=== PATIENT | female | born 1975 | race Caucasian/White ===

== ENCOUNTER → 2019-01-13 15:03 | Outpatient (CLI) | payer OTHER, SELFPAY ==
[2019-01-13 15:38] LABS: Add Manual Diff / Slide Review NO; Basophils Absolute Auto 100 /uL (0-100); Eosinophils Absolute Auto 100 /uL (0-450); Eosinophils Percent Auto 1.8 % (2-4); Hematocrit 41.8 % (36-46); Hemoglobin 14.2 g/dL (12.0-16.0); Lymphocytes Absolute Auto 2200 /uL (1100-4500); Lymphocytes Percent Auto 35.5 % (25-40); Mean Corpuscular HGB Conc 33.9 % (30-36); Mean Corpuscular Volume 91.2 fL (80-100); Monocytes Absolute Auto 500 /uL (0-900); Monocytes Percent Auto 7.5 % (3-14); Neutrophils Absolute Auto 3300 /uL (1500-7000); Neutrophils Percent Auto 54.2 % (50-75); Platelet Count 258 X10^3/uL (150-400); Red Blood Cell Count 4.58 X10^6/uL (4.0-5.2); Red Cell Distribution Width 12.8 % (11.6-14.8); White Blood Cell Count 6.2 X10^3/uL (4.5-11.0)
[2019-01-13 16:34] LABS: Alanine Aminotransferase 23 IU/L (9-52); Albumin 4.6 g/dL (3.5-5.0); Albumin Globulin Ratio 1.8 (1.0-2.8); Alkaline Phosphatase 50 U/L (38-126); Aspartate Aminotransferase 19 IU/L (14-36); BUN Creatinine Ratio 15.7 (6-22); Bilirubin Total 0.4 mg/dL (0.2-1.3); Blood Urea Nitrogen 11 mg/dL (7-17); Calcium 9.5 mg/dL (8.4-10.2); Carbon Dioxide 30 mmol/L (22-32); Chloride 100 mmol/L (98-107); Cholesterol 180 mg/dL (140-199); Estimated Glomerular Filt Rate > 60.0 mL/min (>60); Globulin 2.6 g/dL (1.7-4.1); Glucose 91 mg/dL (70-100); HDL Cholesterol 74 mg/dL (40-60); HEMOLYSIS < 15 (0-50); LDL Cholesterol Calculated 79 mg/dL (<100); Potassium 4.3 mmol/L (3.4-5.1); Sodium 137 mmol/L (137-145); Total Protein 7.2 g/dL (6.3-8.2); Triglycerides 136 mg/dL (35-150)
[2019-01-13 16:38] LABS: High Sensitivity CRP - Cardiac 0.4 mg/L (1.0-3.0)
[2019-01-13 16:53] LABS: Free T3, Triiodothyronine Free 3.61 pg/mL (2.77-5.27); Free T4, Direct Thyroxine 1.15 ng/dL (0.78-2.19)
[2019-01-13 17:07] LABS: Thyroid Stimulating Hormone 1.09 uIU/mL (0.47-4.68)
[2019-01-13 17:10] LABS: Ferritin 17.5 ng/mL (6.27-137); Testosterone 18.6 ng/dL (5.71-77.0)
[2019-01-13 17:40] LABS: Folate 13.9 ng/mL (2.76-20.0); Vitamin B12 559 pg/mL (239-931)
[2019-01-15 15:07] LABS: Dehydroepiandrosterone Sulfate 145 mcg/dL (19-231)
[2019-01-15 15:30] LABS: Progesterone 0.5 ng/mL
[2019-01-15 15:32] LABS: Estradiol 77 pg/mL
[2019-01-17 05:45] LABS: Vitamin B6 5.6 ng/mL (2.1-21.7)
== END ==
PROVIDERS: PCP Family Medicine; Visit Provider Family Medicine
DX: G35 Multiple sclerosis (principal)
CPT/HCPCS: 36415; 80053; 80061; 82306; 82542; 82607; 82627; 82670; 82728; 82746; 83735; 84144; 84207; 84403; 84439; 84443; 84481; 85025; 86140

== ENCOUNTER 2019-02-12 14:30 | Observation (INO) | payer OTHER, SELFPAY ==
[2019-01-26 10:43] VITALS: BMI 24.3
[2019-02-11] VITALS (14 sets, daily range): BP systolic 97–126; BP diastolic 56–76; PULSE 54–97; RESP 12–16; TEMP 36.4–37.7; O2SAT 96–100; BMI 24.3
--- NOTE | 2019-02-11 | PATH_ITS ---
[facility] Accession Number: [id number] . 01 Material submitted: . PART A: body - BILATERAL OVARIAN CYST/PARATUBAL CYST PART B: uterus - UTERUS AND BILATERAL FALLOPIAN TUBES . 02 Diagnosis: A. Bilateral Ovarian Cysts: Ovarian tissue with bilateral follicular cysts, negative for atypia. . B. Uterus with Bilateral Fallopian Tubes: Proliferative endometrium, negative for atypia. Extensive adenomyosis, negative for atypia. Fallopian tubes unremarkable. MRV/02/16/2019 . 02 Electronically signed: . Wong Rubin MD, Pathologist NPI- [id number] . 01 Gross description: . (A) Received in formalin, labeled ovarian cyst/paratubal cyst, are multiple pieces of rodriguez-herrera rubbery apparent ovarian tissue (4.0 x 3.1 x 0.3 cm in aggregate). Sequins Winder tissue submitted in cassette A1. (B) Received in formalin, labeled uterus and bilateral fallopian tubes, is a uterus (241 grams, 6.5 cm AP, 10.8 cm SI, 7.5 cm ML) with attached fimbriated fallopian tubes (right: length-8.5 cm, diameter-0.6 cm; left: length-7.5 cm, diameter-0.6 cm). The ovaries are absent. The cervix (3.0 cm AP, 4.0 cm ML) has a vaginal cuff (up to 1.5 cm in depth), transverse os, and patent endocervical canal. The endometrium (average thickness-0.2 cm) is pale pink, smooth and flat. The myometrium (thickness-2.2 cm) is herrera-white with a lacy pattern. The serosa is pale herrera, smooth and shiny. The fallopian tubes have dark maroon smooth shiny serosa and herrera unremarkable lumens. Section code: (B1-B2) anterior cervix, bisected and submitted SI; (B3-B4) posterior cervix, bisected and submitted SI; (B5-B7) anterior endomyometrium; (B8, B9) posterior endomyometrium; (B10) right fallopian tube, service representative serial sections; (B11) right fimbria, bivalved, entirely submitted; (B12) left fallopian tube, service representative serial sections; (B13) left fimbria, bivalved, entirely submitted. Note: Per the requisition, fluid from left ovarian cyst was submitted to cytology for analysis. ([id number]) /MRV . 02 Pathologist provided ICD-10: N80.0 . 02 CPT . 410018, [id number] Performed at: 01 [facility] [address] [id number] MD Gustavo Barahona MD Phone: [phone] Performed at: [address] [facility] [address] [place], [place] [id number] MD Isabella Haddad MD Phone: [phone]
--- NOTE | 2019-02-11 | PATH_ITS ---
Note [facility] Accession Number: [id number] TESTS RESULT FLAG UNITS REF RANGE LAB Clinician Provided Cytology Information No. of containers..01 ThinPrep Vial 01 L OVARIAN CYST FLUID DIAGNOSIS: 02 L OVARIAN CYST FLUID NEGATIVE FOR MALIGNANT CELLS. Pathologist ICD10: 02 N83.202 02 Gloria Dyson MD, Pathologist NPI- [id number] Shukri Garcia, Consumer Credit Counselor (ASC) 01 15 CC, YELLOW, CLEAR /LCS FLAG LEGEND: L-Low Normal,H-High Normal,LL-Alert Low,HH-Alert High <-Panic Low,>-Panic High,A-Abnormal,AA-Critical Abnormal Performed at: 01 =Z [facility] [address], [place] [address] Gustavo Barahona MD, 02 LWA [facility] [address] [place] [id number] Isabella Haddad MD, Specimen Comment: A duplicate report has been generated due to demographic updates. Performed at: 01 [facility] [address], [place], [place] [id number] MD Gustavo Barahona MD Phone: [phone]
--- NOTE | 2019-02-11 06:57 | PM.HP.1 ---
History of Present Illness Date Patient Seen: 02/11/19 Time Patient Seen: 06:57 Chief complaint: [id number] PELVIC *OPB* Narrative: Patient is a 43-year-old 2 para 2 who presents for a laparoscopic-assisted vaginal hysterectomy, bilateral salpingectomy, and anterior and posterior repair This is being done due to uterine prolapse, cystocele, and rectocele Patient History Surgical History (Updated 01/27/18 @ 05:23 by Conversion Provider) Status post delivery Status post endometrial ablation Family History (Updated 02/10/15 @ 00:00 by Lalita Amezcua DO) Father Diabetes mellitus Mother Kidney disease Hypertension Social History household members: spouse Smoking Status: Never smoker Family & Social History Family History (Updated 02/10/15 @ 00:00 by Lalita Amezcua DO) Father Diabetes mellitus Mother Kidney disease Hypertension Social History: household members spouse Tobacco & Substance use: Smoking Status Never smoker Meds Home Medications Medication Instructions Recorded Confirmed Type [boric acid] 600 mg VAGINAL SEE INSTRUCTIONS 08/06/17 01/20/19 Rx #30 tab Allergies Allergy/AdvReac Type Severity Reaction Status Date / Time Sulfa (Sulfonamide Allergy Unknown Verified 02/11/19 06:56 Antibiotics) Exam Vital Signs (past 8 hours): HEENT: No thyromegaly, no anterior cervical or supraclavicular lymphadenopathy. Lungs:Clear to auscultation bilaterally, no wheezes. Cardiovascular: Regular rate and rhythm, no murmurs, rubs, or gallops. Abdomen: Well-healed Pfannenstiel scars. No hepatosplenomegaly. No masses palpable. External genitalia: Normal Vagina: Uterine prolapse, cystocele, rectocele Cervix: Prolapsed Bimanual exam: 7 Week size uterus. Mobile, prolapsed. Rectal: No masses. Assessment & Plan Assessment & Plan narrative: Assessment: 43-year-old with uterine prolapse, cystocele, and rectocele Plan: Laparoscopic-assisted vaginal hysterectomy, bilateral salpingectomy, anterior and posterior repair Possible sacral spinous ligament fixation The risks, benefits, and alternatives to the procedure were explained to the patient. The risks including bleeding, infection, injury to the bowel, bladder, ureters, urethra, or rectum. She understands these risks and agrees to proceed. A full PAR- Q was held and consent form was signed.
[2019-02-11] MEDS: LACTATED RINGERS 1,000 ML 42 ML IV (07:00)
--- NOTE | 2019-02-11 07:00 | PM.PREOP ---
Pre-operative Note Interval Note History & Physical reviewed/Exam performed by Physician: Yes Changes to H&P: No
[2019-02-11] MEDS: CEFAZOLIN 2 GM/100 ML FROZ.PIGGY IV (07:55)
--- NOTE | 2019-02-11 08:35 | SUR.OPER ---
Lithotomy on padded OR bed. Brock Pad Positioner under torso. Head on pillow, arms padded and tucked at sides. Legs secured in padded yellow fins stirrups.
[2019-02-11] MEDS: LACTATED RINGERS 1,000 ML 100 ML IV ×3 (08:54→23:31)
[2019-02-11] MEDS: BUPIVACAINE 0.5% W/ EPI (PF) VIAL 30 ML INJ (08:55)
[2019-02-11] MEDS: HYDROMORPHONE 2 MG INJ 0.5 MG IV ×2 (11:41→11:49)
--- NOTE | 2019-02-11 11:45 | SUR.PHASEI ---
Assumed care of pt. Received report from Radha Gardiner RN. Pt's VS stable, bradycardic in mid-50's but is pt's trend. Pt reports pain, administered dilaudid per physician's order.
--- NOTE | 2019-02-11 12:05 | SUR.PHASEI ---
Gave report to Radha Gardiner RN. Pt reports pain 2/10 and tolerable. [place] warmer in place. IVF stopped. VS remain stable and pt on RA.
--- NOTE | 2019-02-11 12:47 | SUR.PHASEI ---
Late entry: Post op PACU transfer note: VSS, o2 sat WNL on room air. Pain level 2/10. Brenda pad dry. Abdominal dressings x 3 CDI. IV patent. SCD's on. Verbal report given to Emma Soto RN. Family at bedside. Shelly Gardiner MSN, RN
[2019-02-11] MEDS: OXYCODONE/ACETAMINOPHEN 5/325 TABLET 2 TAB PO ×2 (13:38→17:44)
--- NOTE | 2019-02-11 14:03 | PC.NURSE ---
Arrival Pt arrived from PACU, awake and states pain is 2/10. bee patent and draining clear yellow urine. vasu at bedside. admission complete. medicated with 1 percocet to start to keep pain managed. pt follows gluten free/dairy free diet. tolerated juice and crackers. 3 lap sites CDI with gauze/tegaderm.
[2019-02-11] MEDS: HYDROMORPHONE 0.5 MG INJ IV ×3 (15:02→23:30)
[2019-02-11] MEDS: DOCUSATE 250 MG CAPSULE PO (19:05)
[2019-02-12] VITALS (7 sets, daily range): BP systolic 99–139; BP diastolic 52–89; PULSE 59–77; RESP 15–18; TEMP 36.4–37.8; O2SAT 96–98
[2019-02-12] MEDS: OXYCODONE/ACETAMINOPHEN 5/325 TABLET 2 TAB PO (03:58)
[2019-02-12] MEDS: HYDROMORPHONE 0.5 MG INJ IV ×4 (05:01→21:11)
--- NOTE | 2019-02-12 05:09 | PC.NURSE ---
Shift Note: Pt wanted to try to take PO Percocet 10mg for pain control, after an hour reported that pain had not been touched by the 10mg of percocet and requested IV Dilaudid. Pt asked many questions about the differences in medications, concerns about bowel function, and possibility of dependence. Educated pt on differences between the two, that it was important to know that the Percocet had not worked for her and that there were more options available for pain control. Encouraged pt to discuss with surgeon, medicated per MAR with IV Dilaudid with good relief, and will pass on medication needs to day shift. Pt acknowledged all teaching, reported feeling satisfied with explanation and appreciated education. Will continue to monitor.
[2019-02-12 05:44] LABS: Add Manual Diff / Slide Review NO; Basophils Absolute Auto 0 /uL (0-100); Basophils Percent Auto 0.4 % (0-2); Eosinophils Absolute Auto 0 /uL (0-450); Eosinophils Percent Auto 0.3 % (2-4); Hematocrit 31.7 % (36-46); Hemoglobin 11.3 g/dL (12.0-16.0); Lymphocytes Absolute Auto 2400 /uL (1100-4500); Lymphocytes Percent Auto 21.6 % (25-40); Mean Corpuscular HGB Conc 35.6 % (30-36); Mean Corpuscular Hemoglobin 32.3 PG (26-34); Mean Corpuscular Volume 90.7 fL (80-100); Monocytes Absolute Auto 700 /uL (0-900); Monocytes Percent Auto 6.1 % (3-14); Neutrophils Absolute Auto 7900 /uL (1500-7000); Neutrophils Percent Auto 71.6 % (50-75); Platelet Count 192 X10^3/uL (150-400); Red Blood Cell Count 3.49 X10^6/uL (4.0-5.2); Red Cell Distribution Width 12.7 % (11.6-14.8); White Blood Cell Count 11.1 X10^3/uL (4.5-11.0)
[2019-02-12] MEDS: DOCUSATE 250 MG CAPSULE PO ×2 (09:22→18:16)
[2019-02-12] MEDS: HYDROMORPHONE 2 MG TABLET PO ×3 (11:38→18:16)
--- NOTE | 2019-02-12 15:00 | PC.NURSE ---
Day Shift Davila removed this AM around 0730. Pt was able to urinate 125 however PVR was 500. She urinated 300 and PVR was 450. Notified MD and order for straight cath. Pt was not happy with this and attempted to urinate again, unable to do so. In and out cath for 500 ml clear light yellow urine at 1130. up to bathroom at 1430, able to urinate 200 ml, 250 PVR. Notified MD again and will allow pt a chance to urinate one more time around 1515 and update MD with results. Pt states percocet did not help her pain at all, spoke with MD and order for PO dilaudid obtained. She stated this did not so much help her pain but make her sleepy. She did state she would try this again and was given a second dose of 2mg PO dilaudid at 1430.
--- NOTE | 2019-02-12 15:22 | CM.DANOTE ---
Discharge Planning/Care Management DCP: assessment: case received, EMR reviewed. Pt is a 43 year old female who admitted yesterday for a planned gynecological surgery: surgeon: Dr. Salcedo. Payer: [facility] PCP: Dr. Amezcua Admission status: [facility] [place] with a change to OBS: per UR RN Gustavo. Pt is having issues with pain and so void with need for in and out cathing and PVR checks. P: check in tomorrow and follow prn for any d/c needs that may arise. CM Discharge Assessment Start: 02/12/19 15:19 Freq: Status: Active Protocol: Document 02/12/19 15:21 ITV (Rec: 02/12/19 15:21 ITV [id number]) Discharge Planning Assessment Advance Directives? No History Provided By Patient Medical Record Household Members spouse Review Status In Process Next Review Type Continued Stay Review Pre-Anesthesia Assessment Start: 01/26/19 10:43 Freq: Status: Complete Protocol: Document 01/26/19 10:43 CAB (Rec: 01/26/19 11:43 CAB [id number]) Pre-Anesthesia Assessment Patient Information Reviewed Via Chart Review Primary Care Provider Lalita Amezcua Seen Specialist in Last 12 Months Yes Specialist Seen Analyst Programmer Other Comment Neurology for MS Primary Language Tanzanian Insole And Heel Stiffener Required No Height 177.8 cm Weight 77.111 kg Body Mass Index (BMI) 24.3 Barriers to Learning None Hx Anesthesia Reactions Unknown Anesthesia Review Requested No Engineering And Scientific Programmer No Smoking Status Never smoker Patient is completely paralyzed or No completely immobile Mental Status Oriented to own ability Comment Hx of MS Is patient on oxygen? No Does patient have AZEVEDO/SOB No Hx Sleep Apnea No Currently Taking a Beta Steve No Hx Chest Pain No Hx SOB No Hx Syncope or Dizziness No Anti-Coagulant Therapy No Has a Support Architect No Cardiac Testing No Hx Pacemaker/ICD No Pacemaker Rep Required? No Cardiac Clearance Received Not Applicable Diet Type At Home Gluten Free Other dysphagia No Bladder Pattern Incontinent, Stress Urinary Catheter Present No Hx Urinary Self Catheterization No Diabetes No Patient No Lactating No Marital Status Lives With spouse Patient Discharge Plan Description Return Home
[2019-02-12] MEDS: LACTATED RINGERS 1,000 ML 100 ML IV (16:18)
[2019-02-12] MEDS: ZOLPIDEM 5 MG TABLET 10 MG PO (23:30)
[2019-02-13] MEDS: LACTATED RINGERS 1,000 ML 100 ML IV (02:21)
[2019-02-13] MEDS: HYDROMORPHONE 0.5 MG INJ IV (03:47)
--- NOTE | 2019-02-13 06:13 | PC.NURSE ---
Shift note: Removed bee and d/c'd fluids at 0600 per report from evening shift nurse. Pt tolerated well. Educated on voiding by 0900, pt acknowledged. Will pass on instructions to day shift nurse.
[2019-02-13 06:15] VITALS: BP 121/71; PULSE 62; RESP 15; TEMP 37.5; O2SAT 97
[2019-02-13] MEDS: MAGNESIUM HYDROXIDE 30 ML UDC PO (07:13)
[2019-02-13] MEDS: DOCUSATE 250 MG CAPSULE PO (07:13)
[2019-02-13 08:00] VITALS: BP 135/80; PULSE 62; RESP 16; TEMP 37.7; O2SAT 98
[2019-02-13] MEDS: HYDROMORPHONE 2 MG TABLET PO ×2 (08:29→11:20)
--- NOTE | 2019-02-16 05:31 | P.OP_ITS ---
Operative Date/Time/Diagnoses Date of procedure: 02/11/19 Time of procedure: 11:15 Pre-op diagnosis: Uterine prolapse Cystocele Post-op diagnosis: same Procedure: Procedures Operation Date: 02/11/19 07:45 Actual Procedures Side Surgeon p Laparoscopic Assisted Vag Hysterectomy WITH BILATERAL SALPINGECTOMY Bilateral Xin Salcedo MD s Anterior Colporrhaphy w/Sacrospinous ligament fixation Not Applicable Xin Salcedo MD Indications: Uterine prolapse Cystocele Bilateral ovarian cysts Surgeon: Xin Salcedo Brazer Crawler Torch: Anum Aldana Anesthesia Type: General Operative Notes Findings: Ten week size uterus Normal tubes Bilateral simple ovarian cyst Normal liver and gallbladder Normal appendix Closure Type: primary Specimen(s): left tube, right tube and uterus Applied: catheter Estimated blood loss (mL): 200 Blood products transfused: none Procedure in detail: The patient was taken to the operating room where she was placed in the dorsal supine position. After adequate general endotracheal anesthesia was achieved, she was placed in the dorsal lithotomy position, and prepped and draped in the usual sterile fashion. A bivalve speculum was placed into the vagina, and a single-tooth tenaculum was placed on the anterior lip of the cervix. The cervical os was sequentially dilated until the ZUMI uterine manipulator could pass easily into the endometrial cavity. The single-tooth tenaculum was removed from the anterior lip of the cervix, and the bivalve speculum was removed from the vagina. Attention was then turned to the abdomen where 6 mL of half percent Marcaine with epinephrine were injected in the umbilical fold. A 5 mm incision was made. The Verhees needle was placed into the peritoneal cavity, and its placement confirmed by aspiration and drop test. The abdominal cavity was insufflated with 4 L of CO2. The Verhees needle was removed, and a 5 mm trocar was placed without difficulty. Initial inspection of the pelvis revealed the findings noted above. 2 other incisions were made midway between the pubic symphysis and umbilicus 4 cm lateral to the midline. These were 5 mm incisions. Two 5mm trochars were placed under direct visualization. The right tube was grasped with an atraumatic grasper. The mesosalpinx on the right side was cauterized and cut with plasma kinetic. The round ligament and broad ligament were cauterized and cut. This was continued to the level of the uterine arteries. This was repeated on the patient's left side. Bilateral ovarian cysts were excised using the PlasmaKinetic. Hemostasis was achieved. The instruments were removed from the abdomen. The incisions were covered with sterile towels. Attention was then turned to the vagina where the ZUMI uterine manipulator was removed from the uterus. The cervix was grasped with a 4 tooth tenaculum. 10 mL of quarter percent Marcaine with epinephrine were injected circumferentially around the cervix. The cervix was circumscribed. The bladder and rectum were dissected off the lower uterine segment and cervix with an open moistened Ray- Genna. The peritoneum was entered sharply with the Metzenbaum scissors anteriorly and a Matthew placed. The peritoneum was entered posteriorly with the Metzenbaum scissors and the long weighted speculum was placed into the posterior cul-de-sac. The uterosacral cardinal ligament complexes were clamped, transected, and suture ligated with 0 Vicryl. These were attached to hemostats. The uterine arteries were clamped, transected, and suture ligated with 0 Vicryl. The uterus was handed off for specimen with the tubes and ovaries. The peritoneum was closed with a pursestring suture with 2-0 Vicryl. The vaginal cuff was closed with 0 Vicryl with a series of simple interrupted sutures. The tagged sutures were cut. 2 Allis clamps were placed at the apex of the cystocele. 6 mL of half percent Marcaine with epinephrine were injected and an incision was made with a #10 blade between the 2 Allis clamps. Wide Allis clamps were placed on the midline of the cystocele approximately 5. The mucosa was undermined using the Metzenbaum scissors and the mucosa incised in the midline moving the wide Allis clamps to the edges of the mucosa. The mucosa was dissected off the underlying fascia using an open moistened Ray-Genna and a #10 blade. The fascia was reapproximated with 0 Vicryl with a series of horizontal mattress sutures. The excess vaginal mucosa was excised. The mucosa was closed using simple interrupted sutures with 2-0 Vicryl including the underlying fascia to close the space. Hemostasis was achieved. Allis clamps were placed at the mucocutaneous junction posteriorly. 5 cc of 0.5% Marcaine were injected submucosally. A triangular piece of tissue was excised between the 2 Allis clamps. The posterior mucosa was incised in the midline. Towards the patient's right side the rectum was dissected away from the patient's right side. The sacral spinous ligament was identified. Using the Capio needle, 2 sutures with 2 0 Prolene were placed into the sacral spinous ligament 2 cm medially away from the sacrum. This suture was then taken through the vaginal mucosa approximately midway down the vagina. The vaginal mucosa was closed with a running suture with 2 0 Vicryl. Once midway down the vagina, the sacral spinous ligament suture was tied down. On the perineum 0 Vicryl was used to reapproximate the levator muscle. The subcutaneous layer was closed with 2-0 Vicryl. The skin was closed with 3-0 chromic in a subcuticular fashion. Hemostasis was achieved. A Betadine moistened vaginal pack was placed into the vagina. A rectal exam was done and there were no sutures palpable in the rectum. Gloves were changed. Attention was turned back to the abdomen. The abdominal cavity was insufflated with 3 L of CO2. The pedicles and vaginal cuff were examined. There was a small amount of bleeding noted from the right edge and this was cauterized with the PlasmaKinetic for hemostasis. The pelvis was copiously irrigated with warm normal saline. There was no additional bleeding noted. The instruments were removed from the abdomen. CO2 was allowed to escape. The incisions were closed with 4 0 undyed Vicryl in a subcuticular fashion. Steri- Strips, 2 x 2, and op sites were placed. Sponge, lap, and instrument counts were correct x2. The patient tolerated the procedure well, and was taken to PACU in stable condition. Complications: none Post-operative Condition: stable Disposition: PACU Plan for aftercare: To acute care after recovery
--- NOTE | 2019-02-16 05:31 | PM.PNPO.1 ---
Subjective Date Patient Seen: 02/12/19 Time Patient Seen: 17:30 Interval history: Patient is a 43-year-old postop day # 1 status post LAVH/bilateral salpingectomy/excision of ovarian cysts/anterior repair/sacral spinous ligament fixation Patient's catheter was removed this morning. She had some pain management issues overnight which have been resolved during the day today with IV Dilaudid. She has been able to void but has had high postvoid residuals. Her Davila catheter was replaced early this afternoon. Exam Vital Signs (past 8 hours): Oxygen Delivery Method Room Air Oxygen Flow Rate 0 Narrative Exam Narrative: Generally: Patient is sitting up in bed, eating dinner, no acute distress Lungs: Clear to auscultation bilaterally Cardiovascular: Regular rate and rhythm Abdomen: Soft and flat. Good bowel sounds in all 4 quadrants. Incisions: Clean dry and intact with op site Perineum: Vaginal packing removed this morning. Dry perineum. Extremities: Negative Homans, trace edema Objective Labs Result Diagrams: 02/12/19 05:14 Assessment & Plan Post-op (1) Postop check: Assessment and Plan narrative: Assessment: Postop day # 1 status post LAVH/bilateral salpingectomy/excision of bilateral ovarian cysts/cystocele repair/sacral spinous ligament fixation with high postvoid residuals requiring Davila catheter replacement Pain management issues which are being rectified with IV Dilaudid Plan: Continue Davila catheter until tomorrow morning Bladder trial starting tomorrow morning Anticipated discharge tomorrow Postoperative Procedures Operation Date: 02/11/19 07:45 Actual Procedures Side Surgeon p Laparoscopic Assisted Vag Hysterectomy WITH BILATERAL SALPINGECTOMY Bilateral Xin Salcedo MD s Anterior Colporrhaphy w/Sacrospinous ligament fixation Not Applicable Xin Salcedo MD Postoperative day: 1 Postoperative status: urinary retention and marginal pain control Postoperative plan: voiding trials Postoperative plan narrative: Replaced catheter Continue IV Dilaudid overnight as needed for pain Time Spent With Patient 15-24 minutes Quality VTE Deep Vein Thrombosis/Pulmonary Embolism Present on Admission: No
--- NOTE | 2019-02-16 05:39 | P.DS_ITS ---
History of Present Illness Chief complaint: [id number] [phone] PELVIC *OPB* Narrative: Patient is a 43-year-old 2 para 2 who presents for a laparoscopic-assisted vaginal hysterectomy, bilateral salpingectomy, anterior repair and sacrospinous ligament fixation. She also had cyst excised from both ovaries. This was done due to uterine prolapse and cystocele Discharge Providers Date of admission: 02/12/19 14:30 Discharge Date: 02/13/19 Primary care physician: Lalita Amezcua DO Discharge provider: Xin Salcedo MD Summary Discharge Diagnosis: Uterine prolapse Cystocele Bilateral ovarian cysts Urinary retention postoperatively Pain management issues Hospital Course: The patient presented on 02/11/2019 for a scheduled LAVH/bilateral salpingectomy/anterior repair/sacral spinous ligament fixation. She also had bilateral ovarian cysts excised. She underwent all of these procedures without complication. Her postoperative course was complicated by urinary retention on postop day # 1. This required replacement of the Davila catheter. She also had pain management issues throughout the 1st night req uiring IV Dilaudid for pain control. On the 2nd postoperative day, the Davila catheter was again removed. The patient was able to void with minimal postvoid residuals. Her pain was managed with oral Dilaudid. She was discharged home to follow up at 2 weeks. Status at Discharge Cognitive/behavioral status at discharge: oriented Functional status at discharge: independent ambulation Overall status at discharge: patient is progressing back to baseline Time Spent with Patient Less than 30 minutes Exam Vital Signs (past 8 hours): Oxygen Delivery Method Room Air Oxygen Flow Rate 0 Narrative Exam Narrative: Generally: A well-developed, well-nourished white female, no acute distress Lungs: Clear to auscultation bilaterally Cardiovascular: Regular rate and rhythm Abdomen: Soft and flat. Good bowel sounds. Incisions: Clean dry and intact with op site Extremities: Negative Homans, no edema Objective Labs Result Diagrams: 02/12/19 05:14 Discharge Plan Discharge Plan Patient Disposition: Home Discharge comment: Call with fever, chills, redness or drainage around incisions or bleeding vaginally more than spotty to light Empty bladder every 2 1/2 - 3 hours, get up once at night to empty bladder Discharge Med Rec/Prescriptions Prescriptions: New hydromorphone [Dilaudid] 2 mg tablet 2 mg PO Q4H PRN (Reason: pain) Qty: 30 RF: 0 Discontinued [boric acid] 600 mg Vaginal SEE INSTRUCTIONS Qty: 30 RF: 0 Follow up/Referrals: Xin Salcedo MD [Physician] - 2 Weeks (My office will call to schedule on Friday) Provider Discharge Instructions Diet: Regular Activity: No heavy lifting, pushing or pulling Nothing in the vagina Skin/Wound/Dressing Care Report to your healthcare provider any signs of infection, such as:: chills, fever, increased pain, unusual drainage and unusual redness Dressing: Remove outer plastic dressings and guaze tomorrow after a shower Visit Report/Discharge Packet Instructions: DI for Cystocele and Rectocele Repair, DI for Hysterectomy, DI for Laparoscopy Stand Alone Forms: Surgery Discharge Discharge Data Primary Care Provider: Lalita Amezcua Attending Provider: Xin Salcedo Admit Date/Time: 02/12/19 14:30 Discharges patient from system. Discharge Date/Time: 02/13/19 11:53 Quality VTE Deep Vein Thrombosis/Pulmonary Embolism Present on Admission: No
== END 2019-02-13 11:53 | disposition home or self-care (01) ==
LOC: OR 14:40 → AC 14:57 → OR 15:05
PROVIDERS: Admitting Provider Obstetrics & Gynecology; PCP Family Medicine; Visit Provider Obstetrics & Gynecology
PROC: 0UT9FZZ Resection of Uterus, Via Natural or Artificial Opening With Percutaneous Endoscopic Assistance (ICD-10-PCS; CPT 58552; principal; 2019-02-11 07:45)
PROC: (CPT 58552; 2019-02-11 07:45)
DX: N81.3 Complete uterovaginal prolapse (principal); N80.0 Endometriosis of uterus; N83.292 Other ovarian cyst, left side; N83.291 Other ovarian cyst, right side
CPT/HCPCS: 58552; 36415; 57240; 85025; G0378; J0690; J1100; J1170; J2250; J2405; J2704; J3010

== ENCOUNTER → 2019-03-17 16:06 | Outpatient (CLI) | payer OTHER, SELFPAY ==
[2019-02-11 13:13] VITALS: BMI 24.3
[2019-03-17 16:57] LABS: Add Manual Diff / Slide Review NO; Basophils Absolute Auto 100 /uL (0-100); Basophils Percent Auto 0.6 % (0-2); Eosinophils Absolute Auto 300 /uL (0-450); Hematocrit 37.9 % (36-46); Hemoglobin 12.9 g/dL (12.0-16.0); Lymphocytes Absolute Auto 2400 /uL (1100-4500); Lymphocytes Percent Auto 29.5 % (25-40); Monocytes Absolute Auto 600 /uL (0-900); Monocytes Percent Auto 7.1 % (3-14); Neutrophils Absolute Auto 4800 /uL (1500-7000); Neutrophils Percent Auto 58.8 % (50-75); Platelet Count 222 X10^3/uL (150-400); Red Blood Cell Count 4.17 X10^6/uL (4.0-5.2); Red Cell Distribution Width 12.1 % (11.6-14.8); White Blood Cell Count 8.2 X10^3/uL (4.5-11.0)
[2019-03-17 17:46] LABS: Appearance Urine UA CLOUDY; Bilirubin Urine UA NEGATIVE (NEGATIVE); Color Urine UA YELLOW; Glucose Urine UA NEGATIVE (Negative); Ketones Urine UA NEGATIVE (NEGATIVE); Leukocyte Esterase Urine UA 2+ (NEGATIVE); Nitrite Urine UA NEGATIVE (Negative); Occult Blood Urine UA TRACE-LYSED (Negative); Protein Urine UA NEGATIVE (Negative); Specific Gravity Urine UA 1.025 (1.000-1.035); Urobilinogen Urine UA 0.2 E.U./dL (0.2); pH Urine UA 5.5 (4.5-8.0)
[2019-03-17 18:11] LABS: Amorphous Sediment Urine 1+; Bacteria Urine Moderate (10-30); Culture Indicated Urine Specimen Cultured; Mucus Urine 2+ (Negative); RBC Urine 0-1/HPF (0-5/HPF); Squamous Epithelial Cell Urine 5-10 /HPF (0-5/HPF); WBC Urine 10-30/HPF (0-5/HPF)
== END ==
PROVIDERS: PCP Family Medicine; Visit Provider Obstetrics & Gynecology
DX: G89.18 Other acute postprocedural pain (principal); R53.83 Other fatigue
CPT/HCPCS: 36415; 81001; 85025; 87086

== ENCOUNTER → 2019-06-07 08:19 | Outpatient (CLI) | payer OTHER, SELFPAY ==
[2019-02-11 13:13] VITALS: BMI 24.3
[2019-06-07 09:49] LABS: Appearance Urine UA CLOUDY; Bilirubin Urine UA NEGATIVE (NEGATIVE); Color Urine UA YELLOW; Glucose Urine UA NEGATIVE (Negative); Ketones Urine UA NEGATIVE (NEGATIVE); Leukocyte Esterase Urine UA 3+ (NEGATIVE); Nitrite Urine UA POSITIVE (Negative); Occult Blood Urine UA 3+ (Negative); Protein Urine UA NEGATIVE (Negative); Specific Gravity Urine UA 1.015 (1.000-1.035); Urobilinogen Urine UA 0.2 E.U./dL (0.2)
[2019-06-07 09:54] LABS: pH Urine UA 5.5 (4.5-8.0)
[2019-06-07 10:48] LABS: RBC Urine 1-5/HPF (0-5/HPF)
[2019-06-07 10:49] LABS: Bacteria Urine Many (>30); Culture Indicated Urine Specimen Cultured; Squamous Epithelial Cell Urine 0-1 /HPF (0-5/HPF); WBC Urine >100/HPF (0-5/HPF)
== END ==
PROVIDERS: PCP Family Medicine; Visit Provider Family Medicine
DX: R35.0 Frequency of micturition (principal)
CPT/HCPCS: 81001; 87077; 87086; 87186

== ENCOUNTER → 2020-04-18 10:06 | Outpatient (CLI) | payer OTHER, SELFPAY ==
[2019-02-11 13:13] VITALS: BMI 24.3
[2020-04-18 12:37] LABS: Free T4, Direct Thyroxine 1.01 ng/dL (0.78-2.19)
[2020-04-18 12:51] LABS: Thyroid Stimulating Hormone 0.801 uIU/mL (0.47-4.68)
[2020-04-25 06:36] LABS: Thyroid Peroxidase Antibodies <9 IU/mL (0-34)
== END ==
PROVIDERS: PCP Family Medicine; Referring Provider Obstetrics & Gynecology; Visit Provider Obstetrics & Gynecology
DX: K59.00 Constipation, unspecified (principal)
CPT/HCPCS: 36415; 84439; 84443; 86376

== ENCOUNTER → 2021-05-04 12:01 | Outpatient (CLI) | payer OTHER, SELFPAY ==
[2021-04-23 15:47] VITALS: BMI 24.3
--- NOTE | 2021-05-04 12:03 | DI.RAD.S_ITS ---
PROCEDURE: XR LUMBAR SPINE MIN 4V INDICATIONS: back pain TECHNIQUE: 5 views of the lumbar spine were acquired, including bilateral oblique views. COMPARISON: None. FINDINGS: Bones: 5 nonrib-bearing vertebrae are present. There is normal bony alignment. No vertebral body compression fractures. No suspicious bony lesions. Soft tissues: Overlying bowel gas pattern is normal. No suspicious soft tissue calcifications. Oblique images: No pars defects. IMPRESSION: Degenerative disc disease is mild along the thoracolumbar junction and lumbosacral spine to the L5-S1 level where it is moderate in severity. Facet osteoarthritis is minimal at L3-4, mild at L4-5 and moderate at L5-S1. There may be spinal and foraminal stenosis at L5-S1, as a result. Dictated by: Kavon Moncada M.D. on 05/04/2021 at 12:59 Approved by: Kavon Moncada M.D. on 05/04/2021 at 13:00
== END ==
PROVIDERS: PCP Family Medicine; Referring Provider Physical Medicine & Rehabilitation; Visit Provider Family Medicine
DX: M54.5 Low back pain (principal)
CPT/HCPCS: 72110

== ENCOUNTER → 2021-05-24 17:38 | Outpatient (CLI) | payer OTHER, SELFPAY ==
[2021-04-23 15:47] VITALS: BMI 24.3
--- NOTE | 2021-05-24 | DI.MRI.S_ITS ---
PROCEDURE: MR THORACIC SPINE WO/W CON INDICATIONS: MULTIPLE SCLEROSIS TECHNIQUE: Noncontrast sagittal T1 spin echo and T2 fast spin echo, sagittal STIR, axial T1 and T2 fast spin echo through the thoracic spine. After the administration of contrast, axial and sagittal T1 spin echo with fat saturation through the thoracic spine. COMPARISON: [facility], MR, MR HEAD/BRAIN WO/W CON, 05/24/2021, 18:10. [facility], MR, BRAIN W&WO CONTRAST, 02/10/2015, 12:19. FINDINGS: Image quality: Mild motion artifact noted on the post contrast axial sequence. Alignment and curvature: There is normal bony alignment. Marrow: Marrow is of normal overall signal. No acute vertebral body compression fractures. Spinal cord: Multiple hyperintensities are noted in the cord. Focal hyperintensity noted in the right brent cord at C7-T1, on the left at T2-3, centrally at T7-8, on the right at T9-10, and on the right at T12-L1 and the conus. Given motion artifact limitations, no definitive evidence of enhancement present. No cord atrophy or compression. Paraspinous soft tissues: No paravertebral masses or abnormal enhancement. Miscellaneous: Central canal and foramina appear widely patent at all scanned levels. IMPRESSION: 1. Multifocal cord hyperintensities as above, consistent with multiple sclerosis. No convincing evidence of active demyelination. Approved by: Cristopher Harper M.D. on 05/28/2021 at 11:16
--- NOTE | 2021-05-24 | DI.MRI.S_ITS ---
PROCEDURE: MR HEAD/BRAIN WO/W CON INDICATIONS: MULTIPLE SCLEROSIS TECHNIQUE: Noncontrast sagittal and axial FLAIR, axial and coronal T2 fast spin echo, axial VIBE, axial gradient echo, axial diffusion and ADC through the brain. After the administration of contrast, axial and coronal VIBE with fat saturation through the brain. COMPARISON: [facility], MR, BRAIN W&WO CONTRAST, 02/10/2015, 12:19. FINDINGS: Image quality: Excellent. CSF spaces: Ventricles are normal in size and shape. Basal cisterns are patent. No extra-axial fluid collections. Brain: No intracranial bleeds or mass effects. Lara-white matter interface appears intact. Multiple hyperintense foci are present within the periventricular and subcortical white matter. The previous largest left frontal lesion measuring 1.1 cm has decreased in size to 0.3 cm. In addition overall size of lesions appears decreased compared to prior exam. There has been interval. No abnormal intracranial enhancement. Diffusion weighted images show no acute ischemic insults. Brainstem appears normal. Normal intravascular flow voids are present. Skull and face: Calvarial marrow signal is normal. Orbits appear normal. Sinuses: Sinuses and mastoids are clear. IMPRESSION: 1. Scattered T2/FLAIR hyperintensities within the periventricular and subcortical white matter. As noted above, overall, there is appearance decreased size of the lesions with appearance of new subcentimeter lesion in the left frontal lobe. No lesions demonstrate contrast enhancement or restricted diffusion. Overall appearance is consistent with given history of demyelinating disease. Dictated by: Galina Marte M.D. on 05/28/2021 at 10:40 Approved by: Galina Marte M.D. on 05/28/2021 at 11:40
--- NOTE | 2021-05-24 | DI.MRI.S_ITS ---
PROCEDURE: MR CERVICAL SPINE WO/W CON INDICATIONS: MULTIPLE SCLEROSIS TECHNIQUE: Noncontrast sagittal T1 spin echo and T2 fast spin echo, sagittal STIR, sagittal PD fast spin echo, foraminal oblique sagittal T2 fast spin echo, axial gradient echo or T2 fast spin echo through the cervical spine. After the administration of contrast, sagittal and axial T1 spin echo with fat saturation through the cervical spine. COMPARISON: None. FINDINGS: Image quality: Excellent. Alignment and curvature: There is an appearance overall cervical straightening. Trace anterolisthesis is present of C3 on C4, C4 on C5, trace retrolisthesis of C5 on C6 and C6-C7. Marrow: Marrow demonstrates normal overall signal. Spinal cord: Visualized spinal cord is normal in size. Patchy areas of increased signal are noted within the cervical cord and the cervical medullary junction. In addition the remaining portion of the cord from C2 through C7 demonstrates heterogeneous and patchy areas of increased intramedullary signal. No suspicious intramedullary enhancement. No cerebellar tonsillar herniation. Paraspinous soft tissues: No paravertebral masses or suspicious enhancement. Discs: Multilevel [id number]-[id number] disc desiccation most severe at C5-6 and C6-7. C2-C3: No disc bulge, spinal stenosis or foraminal narrowing. C3-C4: Disc bulge with left posterior paracentral asymmetric bulge component. Mild left foraminal narrowing with uncovertebral hypertrophy. C4-C5: Minimal disc bulge with slight effacement of the anterior thecal sac. No narrowing. C5-C6: Mild disc bulge with mild spinal stenosis. No foraminal narrowing. C6-C7: Disc bulge with asymmetric central/right paracentral bulge spinal stenosis. Minimal to mild bilateral foraminal narrowing with uncovertebral hypertrophy. C7-T1: No disc bulge, spinal stenosis or foraminal narrowing. IMPRESSION: 1. Multifocal areas increased intramedullary signal at medullary cervical junction, extending throughout the cervical cord. No areas demonstrate contrast enhancement. Appearance is consistent with given history of demyelinating disease. 2. Multilevel degenerative changes Dictated by: Galina Marte M.D. on 05/28/2021 at 13:59 Approved by: Galina Marte M.D. on 05/28/2021 at 14:09
== END ==
PROVIDERS: PCP Family Medicine; Referring Provider Specialist; Visit Provider Specialist
DX: G35 Multiple sclerosis (principal); M47.812 Spondylosis without myelopathy or radiculopathy, cervical region; M51.16 Intervertebral disc disorders with radiculopathy, lumbar region; M51.17 Intervertebral disc disorders with radiculopathy, lumbosacral region; M48.061 Spinal stenosis, lumbar region without neurogenic claudication; M41.9 Scoliosis, unspecified
CPT/HCPCS: 70553; 72156; 72157; 72158; A9579

== ENCOUNTER → 2021-05-24 17:40 | Outpatient (CLI) | payer OTHER, SELFPAY ==
[2021-04-23 15:47] VITALS: BMI 24.3
--- NOTE | 2021-05-24 17:41 | DI.MRI.S_ITS ---
PROCEDURE: MR LUMBAR SPINE WO/W CON INDICATIONS: Lumbar radiculopathy right L5 TECHNIQUE: Noncontrast sagittal T1 spin echo and T2 fast spin echo, sagittal STIR, axial T1 and T2 fast spin echo through the lumbar spine. In cases with scoliosis, additional coronal T2 fast spin echo may be performed. After the administration of contrast, sagittal and axial T1 spin echo with fat saturation through the lumbar spine. COMPARISON: None. FINDINGS: Image quality: Excellent. Alignment and curvature: There is normal bony alignment. Marrow: Marrow is of normal overall signal. No acute vertebral body compression fractures. No suspicious marrow enhancement. Spinal cord: Conus medullaris terminates at the L1 level. Visualized spinal cord demonstrates normal signal, without suspicious enhancement. Paraspinous soft tissues: No paravertebral masses or abnormal enhancement. T12-L1: Normal appearance. L1-L2: Normal appearance. L2-L3: Normal appearance. L3-L4: Mild disc height loss present. There is an asymmetric right broad-based disc bulge resulting in effacement of the right lateral recess and mild right foraminal stenosis. High-intensity zone in the posterior annulus reflects annular fissure or tear. No central stenosis. L4-L5: Moderate disc height loss and disc bulge is asymmetric to the right also results in moderate right foraminal stenosis. No central or left foraminal stenosis. L5-S1: Moderate disc height loss and circumferential disc bulge. No central stenosis. Mild right foraminal stenosis noted. IMPRESSION: 1. Mild multilevel degenerative disc disease in the lower lumbar spine results in effacement of the right lateral recess and mild right foraminal stenosis at L3-4 as well as moderate right foraminal stenosis at L4-5. Approved by: Cristopher Harper M.D. on 05/28/2021 at 10:13
== END ==
PROVIDERS: PCP Family Medicine; Referring Provider Physical Medicine & Rehabilitation; Visit Provider Physical Medicine & Rehabilitation
DX: G35 Multiple sclerosis (principal); M51.16 Intervertebral disc disorders with radiculopathy, lumbar region; M51.17 Intervertebral disc disorders with radiculopathy, lumbosacral region; M48.061 Spinal stenosis, lumbar region without neurogenic claudication; M41.9 Scoliosis, unspecified
CPT/HCPCS: 72158

== ENCOUNTER → 2021-06-12 08:15 | Outpatient (CLI) | payer OTHER, SELFPAY ==
[2021-04-23 15:47] VITALS: BMI 24.3
[2021-06-12 13:27] LABS: COVID19 -Nasal RAPID Negative (Negative)
== END ==
PROVIDERS: PCP Family Medicine; Visit Provider Physical Medicine & Rehabilitation
DX: Z20.822 Contact with and (suspected) exposure to COVID-19 (principal)
CPT/HCPCS: 87635; C9803

== ENCOUNTER 2021-06-14 15:07 | Outpatient (CLI) | payer OTHER, SELFPAY ==
[2021-04-23 15:47] VITALS: BMI 24.3
[2021-06-14] VITALS (9 sets, daily range): BP systolic 110–132; BP diastolic 67–79; PULSE 58–70; RESP 13–25; TEMP 36.9; O2SAT 96–100
--- NOTE | 2021-06-14 15:11 | DI.RAD.S_ITS ---
PROCEDURE: PAIN L/S TRANSFORAMINAL INJECT INDICATIONS: SPONDYLOSIS COMPARISON: [facility], MR, MR LUMBAR SPINE WO/W CON, 05/24/2021, 18:10. FINDINGS: Fluoroscopic spot filming was performed to verify placement of a spinal needle at the L4-L5 level, as labeled on the films. Appropriate location of the needle tip was confirmed by injection of iodinated contrast. IMPRESSION: Intraprocedural examination within normal limits. Dictated by: Aquilino Fortune M.D. on 06/14/2021 at 15:59 Approved by: Aquilino Fortune M.D. on 06/14/2021 at 15:59
[2021-06-14] MEDS: fentaNYL 100 MCG/2 ML INJ 50 MCG IV (15:42)
[2021-06-14] MEDS: MIDAZOLAM 5 MG/5 ML VIAL IV (15:42)
[2021-06-14] MEDS: IOPAMIDOL 15 ML VIAL 3 ML INJ (15:43)
[2021-06-14] MEDS: BUPIVACAINE 0.25% (PF) VIAL 2 ML INJ (15:44)
[2021-06-14] MEDS: methylPREDNISolone acetate 80 MG/ML VIAL INJ (15:45)
[2021-06-14] MEDS: DEXAMETHASONE 10 MG/ML VIAL 20 MG INJ (15:45)
--- NOTE | 2021-06-14 15:52 | P.PCN_ITS ---
Date/Time/Diagnoses Date of procedure: 06/14/21 Time of procedure: 15:52 Pre-procedure diagnosis: 1. FORAMINAL STENOSIS WITH LE SYMPTOMS Post-procedure diagnosis: same Procedure Notes Procedure: 1. FLUOROSCOPICALLY GUIDED CONTRAST CONTROLLED TRANSFORAMINAL EPIDURAL STEROID INJECTION - RIGHT L4/5 TFESI Indications: Joey is referred by Dr. Amezcua for treatment of Foraminal Stenosis with Right LE Symptoms Physician: Deandre Russo Total Fluoroscopy time (seconds): 8 Total sedation minutes: 7 Complications: none Procedure in detail & Post-procedure care: FINDINGS Foraminal Nerve Root Compression secondary to disc disease and facet hypertrophy DESCRIPTION OF PROCEDURE Following review of allergy and review of potential side effects and complications, including, but not necessarily limited to, infection, allergic reaction, local tissue breakdown, stroke, temporary or permanent nerve injury, paralysis, and possible , the patient indicated that the patient understood and agreed to proceed. An informed consent document was signed by the patient, witnessed by a nurse, and placed in the patient's chart. Additionally, other treatment options including medications, modalities, and physical therapy were reviewed with the patient. After review of previous anaesthesic history and IV conscious sedation the patient was deemed safe to proceed with today?s procedure with IV conscious sedation as ASA class II designation. Safety time-out was performed to confirm patient ID, procedure to be performed and site of procedure. IV sedation was accomplished with a combination of 2mg of Versed and 50mcg of Fentanyl was administered by the RN after DO order, titrated to patient comfort during the course of the procedure while the patient remained responsive to all verbal comm ands In the prone position following sterile prep and drape of the lumbar region, the right L4/5 posterior neuroforamen was identified fluoroscopically. The skin was anesthetized via a 25-gauge 1.5-inch needle with 1% lidocaine solution. At this point, a 25-gauge 3.5-inch spinal needle was atraumatically introduced and advanced under fluoroscopic guidance through the posterior right L4/5 jordan roforamen to approximately the anterior aspect of the canal. Depth was confirmed on lateral view. Following negative aspiration, injection of approximately 1.5cc of Isovue 200 under live fluoroscopy in the AP view confirmed excellent flow along the nerve root, into the epidural space without vascular or intrathecal uptake observed Radiological data, including multiple fluoroscopic views of the lumbosacral spine, reveal a spinal needle at the right L4/5 posterior neuroforamen. Subsequent views show flow of contrast material flowing superiorly and inferiorly along the nerve root confirming epidural flow. Subsequently, a test dose of 1.5 cc of 1% lidocaine solution was administered and patient was observed for two minutes for signs or symptoms of complications, including abdominal pain, shortness of breath, bilateral upper or lower extremity weakness, nausea and vomiting, prior to steroid injection. At this point, a total of 3cc or 20mg of dexamethasone and 80mg of depo medrol was injected without incident. The procedure tolerated the procedure well without signs or symptoms of complications prior to transfer to the recovery area continued monitoring without incident. The patient was then transferred to the recovery area where they were observed for an appropriate time after the injection. The patient reported a VAS score of 7 prior to the procedure and a post-proc edure VAS of 0. POST OP INSTRUCTIONS The patient was provided a Pain Log to continue to record their response to the target-specific procedure prior to follow-up visit with their referring physician. Additionally, specific post-injection care instructions and a contact number to our office were provided if concerns arise regarding possible complications associated with the procedure are suspected.
== END 2021-06-14 16:15 | disposition home or self-care (01) ==
LOC: RAD 15:10
PROVIDERS: PCP Family Medicine; Referring Provider Physical Medicine & Rehabilitation; Visit Provider Physical Medicine & Rehabilitation
DX: M48.061 Spinal stenosis, lumbar region without neurogenic claudication (principal); M51.16 Intervertebral disc disorders with radiculopathy, lumbar region
CPT/HCPCS: 64483; J1040; J1100; J2250; J3010

== ENCOUNTER → 2022-08-28 12:49 | Outpatient (CLI) | payer OTHER, SELFPAY ==
[2021-04-23 15:47] VITALS: BMI 24.3
[2022-08-28 13:27] LABS: Add Manual Diff / Slide Review NO; Basophils Absolute Auto 0 /uL (0-100); Basophils Percent Auto 0.6 % (0-2); Eosinophils Absolute Auto 100 /uL (0-450); Eosinophils Percent Auto 0.9 % (2-4); Hematocrit 41.8 % (36-46); Hemoglobin 14.2 g/dL (12.0-16.0); Lymphocytes Absolute Auto 1900 /uL (1100-4500); Lymphocytes Percent Auto 31.2 % (25-40); Mean Corpuscular Hemoglobin 30.2 PG (26-34); Mean Corpuscular Volume 88.8 fL (80-100); Monocytes Absolute Auto 400 /uL (0-900); Neutrophils Absolute Auto 3700 /uL (1500-7000); Neutrophils Percent Auto 61.3 % (50-75); Platelet Count 273 X10^3/uL (150-400); Red Blood Cell Count 4.71 X10^6/uL (4.0-5.2); Red Cell Distribution Width 13.2 % (11.6-14.8); White Blood Cell Count 6.1 X10^3/uL (4.5-11.0)
[2022-08-28 13:38] LABS: Alanine Aminotransferase 23 IU/L (<35); Albumin 4.3 g/dL (3.5-5.0); Albumin Globulin Ratio 1.4 (1.0-2.8); Alkaline Phosphatase 51 U/L (38-126); Aspartate Aminotransferase 26 IU/L (14-36); BUN Creatinine Ratio 23.5 (6-22); Bilirubin Total 0.5 mg/dL (0.2-1.3); Blood Urea Nitrogen 16 mg/dL (7-17); Carbon Dioxide 28 mmol/L (22-32); Chloride 99 mmol/L (98-107); Cholesterol 198 mg/dL (140-199); Estimated Glomerular Filt Rate > 60 mL/min (>60); Glucose 102 mg/dL (70-100); HDL Cholesterol 70 mg/dL (40-60); HEMOLYSIS < 15 (0-50); LDL Cholesterol Calculated 103 mg/dL (<100); Potassium 3.4 mmol/L (3.4-5.1); Sodium 136 mmol/L (137-145); Total Protein 7.3 g/dL (6.3-8.2); Triglycerides 124 mg/dL (35-150)
[2022-08-28 14:31] LABS: TSH w/ Reflex to FT4 0.82 uIU/mL (0.47-4.68)
[2022-08-28 16:16] LABS: Vitamin D 25 Hydroxy (D3) 68.1 ng/mL (30.0-100.0)
[2022-08-29 07:51] LABS: RPR Screen Non Reactive (Non Reactive)
[2022-08-29 08:57] LABS: HBsAg Screen Negative (Negative); Hepatitis A Antibody IgM Negative (Negative); Hepatitis B Core Antibody IgM Negative (Negative); Hepatitis C Antibody <0.1 s/co ratio (0.0-0.9)
[2022-08-29 16:03] LABS: HIV 1 & 2 Ab/Ag 4th Gen Combo NEGATIVE (NEGATIVE)
== END ==
PROVIDERS: PCP Family Medicine; Referring Provider Family Medicine; Visit Provider Family Medicine
DX: F43.22 Adjustment disorder with anxiety (principal); F98.8 Other specified behavioral and emotional disorders with onset usually occurring in childhood and adolescence; G35 Multiple sclerosis; M54.16 Radiculopathy, lumbar region; Z11.3 Encounter for screening for infections with a predominantly sexual mode of transmission
CPT/HCPCS: 36415; 80053; 80061; 80074; 82306; 84443; 85025; 86592; 87389

== ENCOUNTER → 2022-09-16 13:14 | Outpatient (CLI) | payer OTHER, SELFPAY ==
[2021-04-23 15:47] VITALS: BMI 24.3
[2022-09-16 18:52] LABS: Urine N gonorrhoeae NOT DETECTED
[2022-09-16 19:21] LABS: Urine Chlamydia NOT DETECTED
[2022-09-17 17:11] LABS: Fecal Immunochemical Test Negative (Negative)
== END ==
PROVIDERS: Family Provider Family Medicine; PCP Family Medicine; Referring Provider Family Medicine; Visit Provider Family Medicine
DX: Z11.3 Encounter for screening for infections with a predominantly sexual mode of transmission (principal); Z12.11 Encounter for screening for malignant neoplasm of colon
CPT/HCPCS: 82274; 87491; 87591

== ENCOUNTER → 2023-02-13 10:12 | Outpatient (CLI) | payer OTHER, SELFPAY ==
[2021-04-23 15:47] VITALS: BMI 24.3
[2023-02-13 13:00] LABS: Alanine Aminotransferase 17 IU/L (<35); Albumin 4.1 g/dL (3.5-5.0); Albumin Globulin Ratio 1.6 (1.0-2.8); Alkaline Phosphatase 45 U/L (38-126); Aspartate Aminotransferase 20 IU/L (14-36); BUN Creatinine Ratio 21.6 (6-22); Bilirubin Total 0.4 mg/dL (0.2-1.3); Blood Urea Nitrogen 16 mg/dL (7-17); Calcium 9.1 mg/dL (8.4-10.2); Carbon Dioxide 31 mmol/L (22-32); Chloride 101 mmol/L (98-107); Cholesterol 169 mg/dL (140-199); Estimated Glomerular Filt Rate > 60 mL/min (>60); Globulin 2.6 g/dL (1.7-4.1); Glucose 81 mg/dL (70-100); HDL Cholesterol 67 mg/dL (40-60); HEMOLYSIS < 15 (0-50); LDL Cholesterol Calculated 80 mg/dL (<100); Potassium 4.1 mmol/L (3.4-5.1); Sodium 138 mmol/L (137-145); Total Protein 6.7 g/dL (6.3-8.2); Triglycerides 112 mg/dL (35-150)
[2023-02-13 13:07] LABS: Add Manual Diff / Slide Review NO; Basophils Absolute Auto 0 /uL (0-100); Basophils Percent Auto 0.3 % (0-2); Eosinophils Absolute Auto 100 /uL (0-450); Eosinophils Percent Auto 1.4 % (2-4); Hematocrit 39.1 % (36-46); Hemoglobin 13.6 g/dL (12.0-16.0); Lymphocytes Absolute Auto 1900 /uL (1100-4500); Lymphocytes Percent Auto 32.4 % (25-40); Mean Corpuscular HGB Conc 34.8 % (30-36); Mean Corpuscular Hemoglobin 30.9 PG (26-34); Mean Corpuscular Volume 88.8 fL (80-100); Monocytes Absolute Auto 400 /uL (0-900); Monocytes Percent Auto 6.4 % (3-14); Neutrophils Absolute Auto 3500 /uL (1500-7000); Neutrophils Percent Auto 59.5 % (50-75); Platelet Count 254 X10^3/uL (150-400); Red Cell Distribution Width 12.6 % (11.6-14.8); White Blood Cell Count 5.9 X10^3/uL (4.5-11.0)
[2023-02-13 13:14] LABS: Vitamin D 25 Hydroxy (D3) 99.2 ng/mL (30.0-100.0)
[2023-02-13 14:02] LABS: Folate 14.4 ng/mL (2.76-20.0); Vitamin B12 362 pg/mL (239-931)
== END ==
PROVIDERS: Family Provider Family Medicine; PCP Family Medicine; Referring Provider Nurse Practitioner Family; Visit Provider Nurse Practitioner Family
DX: Z00.01 Encounter for general adult medical examination with abnormal findings (principal); G35 Multiple sclerosis
CPT/HCPCS: 36415; 80053; 80061; 82306; 82607; 82746; 85025

== ENCOUNTER 2023-02-20 09:00 | Outpatient (RCR) | payer OTHER, SELFPAY ==
[2021-04-23 15:47] VITALS: BMI 24.3
--- NOTE | 2022-09-24 17:26 | PT.OIE ---
Current Diagnoses Stress incontinence (female) (male) (09/24/22) Cystocele, midline (09/24/22) Female genital prolapse, unspecified (09/24/22) Past Medical History (Last Reviewed 05/30/21 @ 15:56 by Deandre Russo DO) Lumbar radiculopathy Scoliosis Stress incontinence in female Past Surgical History (Last Reviewed 05/30/21 @ 15:56 by Deandre Russo DO) S/P laparoscopic assisted vaginal hysterectomy (LAVH) (02/11/19) Status post delivery Status post endometrial ablation Visit Care Team Role Provider Type Donovan Tarango MD Family Provider Physician Primary Care Provider Specialty: Family Practice Address: [address] [place] [address] Email: [email or web address] Salcedo MD Attending Provider Physician Referring Provider Specialty: Gynecology CERTIFIED NURSING ASSISTANT Obstetrics Address: [address] [place] [address] Email: [email or web address] Physical Therapy Initial Evaluation PT-OP-A Visit Information Start: 09/24/22 08:54 Freq: Status: Active Protocol: Document 09/24/22 10:36 [facility] (Rec: 09/24/22 11:35 [facility] [id number]) Out-Patient Physical Therapy Visit Information Visit Information Visit Type Initial Evaluation Visit Start Time 10:35 Visit Stop Time 11:20 Total Visit Minutes 45 Visit Number 1 Evaluation Information Evaluation Date 09/24/22 PT-OP-B Current Condition Start: 09/24/22 08:54 Freq: Status: Active Protocol: Document 09/24/22 10:30 [facility] (Rec: 09/24/22 11:35 [facility] [id number]) Current Condition History of Current Condition Onset Date 2018 symtoms began following her partial hysterectomy Current Complaints pelvic pressure, urgency and frequency to void History of Current Condition c section 28 years ago. since her surgery of partial hysterectomy and bladder lift 2018 she has felt different, intercourse felt different different, heaviness of her bladder in the am, she has urgency and frequency, she has to bear down to make her urine come out fast. Before her partial hysterectomy she had one surgery to remove cysts on her ovaries, she did a hysterectomy due to cysts and uterine prolapse she also had urgency. Pt has MS and she works on natural ways to manage her symptoms. She has had right sided tightness, her ITB is tight on the right side. She had a injection in L5 in may 2021 and she did have relief pt takes dandilion root for bowl movements. MS diagnosis january 2015 PT-OP-C Subjective Start: 09/24/22 08:54 Freq: Status: Active Protocol: Document 09/24/22 10:30 [facility] (Rec: 09/25/22 09:40 [facility] [id number]) Patient Questionnaires Pelvic Pain and Urgency/Frequency Patient Symptom Scale Pelvic Pain Score 12 PT-OP-I Pelvic Floor Start: 09/24/22 08:54 Freq: Status: Active Protocol: Document 09/24/22 10:30 [facility] (Rec: 09/24/22 11:35 [facility] [id number]) Pelvic Floor Assessment Urine Pelvic Floor Surgery Yes: hysterectomy for uterine prolapse, cystocele repai Urinary Symptoms Urge Sensation Other Urinary Symptoms Joey reports frequent voiding , she wakes two times at night to void, she notes leakage with intercourse Leakage Cause Cough,Exercise,Urge Other Leakage Causes can happen without a warning Nocturia 2 Bowel Bowel Surgery No Bowel Symptoms Constipation Pelvic Clock Pelvic Clock 12-3 Atrophy Pelvic Clock 3-6 Atrophy Pelvic Clock 6-9 Atrophy Pelvic Clock 9-12 Atrophy Prolapse Cystocele Grade 3 Contraction Ability Voluntary Contraction Weak Voluntary Relaxation Moderate Manual Muscle Testing Left 1 Manual Muscle Testing Right 1 Manual Muscle Testing Anterior 1 Manual Muscle Testing Posterior 1 Muscle Endurance (Seconds) 2 Comments Pelvic Floor Comments pt has very poor contraction ability of all aspects of the levator ani especially the anterior hill, she is a little guarded on the left side of her pelvic floor but was able to relax this region followng a contraction. Adductor assist was given today for HEP PT-OP-J Posture/Palpation/Skin Start: 09/24/22 08:54 Freq: Status: Active Protocol: Document 09/24/22 10:30 [facility] (Rec: 09/26/22 17:26 [facility] [id number]) Palpation Assessment Location scar Palpation Details tenderness to palpation over the scar, myofascial restrictions noted in the region of the suprapubic fascia and Joey notes she does not like any pressure over her lower abdominal wall. PT-OP-Q Treatments Start: 09/24/22 08:54 Freq: Status: Active Protocol: Document 09/24/22 10:30 [facility] (Rec: 09/24/22 15:03 [facility] [id number]) Therapeutic Exercises Supine Exercises pelvic floor contractions with ball squeeze Reps/Minutes 5 sec hold x 10 sec relax x 10 reps Comments pt was instructed in elevating her pelvis for this exercise Self-Care/Home Management Treatment Education Patient Education Home Exercise Program Other Education pt was educated in elevating her pelvis to decompress the pelvic floor and to take pressure off her bladder, she was educated in adductor assist pelvic floor squeezes and splinting at the perineum for fully empyting her bowels and bladder, she was given a HEP for pelvic floor anterior contractions with ball squeeze PT-OP-T Assessment and Plan Start: 09/24/22 08:54 Freq: Status: Active Protocol: Document 09/24/22 10:30 [facility] (Rec: 09/26/22 10:06 [facility] [id number]) Physical Therapy Assessment Rehab Potential Rehabilitation Potential Excellent Evaluation Complexity Number of Personal Factors/Comorbidities 0 Number of Body Systems Impaired 1-2 Clinical Presentation at Evaluation Stable Impairments Impairments Activity Tolerance,Functional Activities,Soft Tissue Mobility,Strength Other Impairments urinary leakage, pelvic pressure and heaviness, frequency and urgency to void Goals Three Impairment Decreased pelvic floor endurance with poor ability to sustain a contraction more than 1-2 seconds in supine Short Term Goal (STG) Joey is able to increase her endurance holds to 10 second holds in supine STG Duration x 8 weeks Residential Goal (LTG) Joey is able to sustain a pelvic floor contraction x 10 seconds in standing LTG Duration x 12 weeks Two Impairment pelvic floor muscle weakness with pelvic organ prolapse and c/o heaviness and pressure Short Term Goal (STG) Joey is educated on pelvic floor facilitation of all aspects of the pelvic floor and is given pelvic decompression exercises to help decrease c/o pelvic heaviness and pressure STG Duration 4 weeks Guidance Secretary Goal (LTG) Joey is able to increase the sterngth of her pelvic floor to 3/5 MMT for all hill of the levator ani or better for improved bladder and vaginal wall support LTG Duration 12 weeks One Impairment urinary frequency and urgency to void with pt waking 2 times at night to void and voiding 12+ times during the day Short Term Goal (STG) Joey is educated in urge deference technique and bladder retraining to begin increasing the time between voids. STG Duration 4 weeks Guidance Secretary Goal (LTG) Joey is able to extend the time between voids to every 2- 3 hours during the day and is waking only 1 time at night to void. LTG Duration 12 weeks Assessment Summary Assessment Joey is a 46 year old female 2 para 2 referred to PT with symptoms of pelvic pressure, urinary urgency and frequency and urinary leakage with intercourse. Joey reports she wakes 2 times at night to void. She has a history of delivery, endometrial ablation, and laparoscopic assisted vaginal hysterectomy 02/11/19, and MS diagnosed in 2014. She has recently been and her pelvic floor dysfunction is a big stressor to her as she begins a new releationship. With pelvic floor examination today Joey tests weak in all aspects of her levator and she has poor ability to facilitate a contraction. She tests 1/5 MMT for all parts of the levator ani and has poor endurance to sustain a pelvic floor contraction. Joey presents with a vaginal vault prolapse and cystocele. Joey was educated today today on exercises to decompress the pelvis taking pressure off her pelvic organs . She was given a adductor assist exercise to help her with anterior pelvic floor recruitment. Joey tolerated treatment well today and is a good candidate for pelvic floor strengthening. Both EMG biofeedback as well as NMES will be used to help improve pelvic floor strength and endurance. Physical Therapy Plan Frequency and Duration Frequency of Treatment 1x/Week Duration of treatment (weeks) 12 Plan of Care Start Date 09/24/22 Plan of Care End Date 12/17/22 Therapeutic Interventions Therapeutic Interventions Home Exercise Program,Manual Therapy,Neuromuscular Re- education,Patient/Caregiver Education,Self-Care/Home Management,Soft Tissue Mobilization,Therapeutic Exercises Modalities Biofeedback,Electric Stimulation Next Visit Focus/Plan Next Note Type Treatment Note Next Visit Plan EMG biofeedback for pelvic floor neuromuscular awareness and endurance strengthening, NMES for improved sensation of the pelvic floor, pelvic decompression exercsies to take pressure off the bladder
--- NOTE | 2022-09-24 17:27 | PT.OPPOC ---
Physical, Occupational & Speech Therapy At [facility] Current Diagnoses Stress incontinence (female) (male) (09/24/22) Cystocele, midline (09/24/22) Female genital prolapse, unspecified (09/24/22) Visit Care Team Role Provider Type Donovan Tarango MD Family Provider Physician Primary Care Provider Specialty: Family Practice Address: [address] [place] [address] Email: [email or web address] Xin Salcedo MD Attending Provider Physician Referring Provider Specialty: Gynecology SENIOR SYSTEMS ARCHITECT Obstetrics Address: [address] [place] [address], [phone] Email: [email or web address] Plan Of Care PT-OP-T Assessment and Plan Start: 09/24/22 08:54 Freq: Status: Active Protocol: Document 09/24/22 10:30 [facility] (Rec: 09/26/22 10:06 [facility] [id number]) Physical Therapy Assessment Rehab Potential Rehabilitation Potential Excellent Evaluation Complexity Number of Personal Factors/Comorbidities 0 Number of Body Systems Impaired 1-2 Clinical Presentation at Evaluation Stable Impairments Impairments Activity Tolerance,Functional Activities,Soft Tissue Mobility,Strength Other Impairments urinary leakage, pelvic pressure and heaviness, frequency and urgency to void Goals Three Impairment Decreased pelvic floor endurance with poor ability to sustain a contraction more than 1-2 seconds in supine Short Term Goal (STG) Joey is able to increase her endurance holds to 10 second holds in supine STG Duration x 8 weeks Director Of Recreation Therapy Goal (LTG) Joey is able to sustain a pelvic floor contraction x 10 seconds in standing LTG Duration x 12 weeks Two Impairment pelvic floor muscle weakness with pelvic organ prolapse and c/o heaviness and pressure Short Term Goal (STG) Joey is educated on pelvic floor facilitation of all aspects of the pelvic floor and is given pelvic decompression exercises to help decrease c/o pelvic heaviness and pressure STG Duration 4 weeks Longterm Goal (LTG) Joey is able to increase the strength of her pelvic floor to 3/5 MMT for all hill of the levator ani or better for improved bladder and vaginal wall support LTG Duration 12 weeks One Impairment urinary frequency and urgency to void with pt waking 2 times at night to void and voiding 12+ times during the day Short Term Goal (STG) Joey is educated in urge deference technique and bladder retraining to begin increasing the time between voids. STG Duration 4 weeks Director Of Recreation Therapy Goal (LTG) Joey is able to extend the time between voids to every 2- 3 hours during the day and is waking only 1 time at night to void. LTG Duration 12 weeks Assessment Summary Assessment Joey is a 46 year old female 2 para 2 referred to PT with symptoms of pelvic pressure, urinary urgency and frequency and urinary leakage with intercourse. Joey reports she wakes 2 times at night to void. She has a history of delivery, endometrial ablation, and laparoscopic assisted vaginal hysterectomy 02/11/19, and MS diagnosed in 2014. She has recently been and her pelvic floor dysfunction is a big stressor to her as she begins a new relationship. With pelvic floor examination today Joey tests weak in all aspects of her levator and she has poor ability to facilitate a contraction. She tests 1/5 MMT for all parts of the levator ani and has poor endurance to sustain a pelvic floor contraction. Joey presents with a vaginal vault prolapse and cystocele. Joey was educated today today on exercises to decompress the pelvis taking pressure off her pelvic organs . She was given a adductor assist exercise to help her with anterior pelvic floor recruitment. Joey tolerated treatment well today and is a good candidate for pelvic floor strengthening. Both EMG biofeedback as well as NMES will be used to help improve pelvic floor strength and endurance. Physical Therapy Plan Frequency and Duration Frequency of Treatment 1x/Week Duration of treatment (weeks) 12 Plan of Care Start Date 09/24/22 Plan of Care End Date 12/17/22 Therapeutic Interventions Therapeutic Interventions Home Exercise Program,Manual Therapy,Neuromuscular Re- education,Patient/Caregiver Education,Self-Care/Home Management,Soft Tissue Mobilization,Therapeutic Exercises Modalities Biofeedback,Electric Stimulation Next Visit Focus/Plan Next Note Type Treatment Note Next Visit Plan EMG biofeedback for pelvic floor neuromuscular awareness and endurance strengthening, NMES for improved sensation of the pelvic floor, pelvic decompression exercsies to take pressure off the bladder Plan of Care Dates Plan of Care Start Date 09/24/22 Plan of Care End Date 12/17/22 Electronically Signed by: Susan Rg, PT 09/26/22 1727 If you are in agreement with this Plan of Care, please return a signed and dated copy. I have reviewed this Plan of Care and certify that the skilled therapy services above are required to meet the patient?s needs. Physician Signature Date Printed Name and Credentials Clinical Instructor Signature Printed Name and Credentials
--- NOTE | 2022-11-07 13:01 | PT.OTN ---
Current Diagnoses Stress incontinence (female) (male) (11/07/22) Cystocele, midline (11/07/22) Female genital prolapse, unspecified (11/07/22) Physical Therapy Treatment Note PT-OP-A Visit Information Start: 09/24/22 08:54 Freq: Status: Active Protocol: Document 11/07/22 09:01 [facility] (Rec: 11/07/22 09:12 [facility] [id number]) Out-Patient Physical Therapy Visit Information Visit Information Visit Type Treatment Note Visit Start Time 09:01 Visit Stop Time 09:45 Total Visit Minutes 44 Visit Number 2 PT-OP-B Current Condition Start: 09/24/22 08:54 Freq: Status: Active Protocol: Document 09/24/22 10:30 [facility] (Rec: 09/24/22 11:35 [facility] [id number]) Current Condition History of Current Condition Onset Date 2018 symtoms began following her partial hysterectomy Current Complaints pelvic pressure, urgency and frequency to void History of Current Condition c section 28 years ago. since her surgery of partial hysterectomy and bladder lift 2018 she has felt different, intercourse felt different different, heaviness of her bladder in the am, she has urgency and frequency, she has to bear down to make her urine come out fast. Before her partial hysterectomy she had one surgery to remove cysts on her ovaries, she did a hysterectomy due to cysts and uterine prolapse she also had urgency. Pt has MS and she works on natural ways to manage her symptoms. She has had right sided tightness, her ITB is tight on the right side. She had a injection in L5 in may 2021 and she did have relief pt takes dandilion root for bowl movements. MS diagnosis january 2015 PT-OP-C Subjective Start: 09/24/22 08:54 Freq: Status: Active Protocol: Document 11/07/22 09:01 [facility] (Rec: 11/07/22 09:12 [facility] [id number]) OP-PT Subjective Patient Comments Patient Comments Has been trying to use the yoga block to tilt her pelvic floor , its hard to find and hold her pelvic floor PT-OP-I Pelvic Floor Start: 09/24/22 08:54 Freq: Status: Active Protocol: Document 11/07/22 09:12 [facility] (Rec: 11/07/22 09:33 [facility] [id number]) Pelvic Floor Assessment Contraction Ability Voluntary Contraction Weak Voluntary Relaxation Moderate Manual Muscle Testing Left 1 Manual Muscle Testing Right 1 Manual Muscle Testing Anterior 1 Manual Muscle Testing Posterior 1 Muscle Endurance (Seconds) 2 Comments Pelvic Floor Comments pt reports her entire right side is always her problem side, history of L4-5 bulging disc on the right side. PT-OP-J Posture/Palpation/Skin Start: 09/24/22 08:54 Freq: Status: Active Protocol: Document 09/24/22 10:30 [facility] (Rec: 09/26/22 17:26 [facility] [id number]) Palpation Assessment Location scar Palpation Details tenderness to palpation over the scar, myofascial restrictions noted in the region of the suprapubic fascia and Joey notes she does not like any pressure over her lower abdominal wall. PT-OP-Q Treatments Start: 09/24/22 08:54 Freq: Status: Active Protocol: Document 11/07/22 09:01 [facility] (Rec: 11/07/22 09:12 [facility] [id number]) Therapeutic Exercises Supine Exercises quick pelvic floor contractions Reps/Minutes x 10 reps pelvic floor long holds Reps/Minutes 10 sec on 10 sec off x 10 reps Comments 2.5 average and max of 6 Neuro Re-Education Treatment Other Activities NMES for the pelvic floor Details with vaginal sensor Comments started at level 10 only feels the sensation on the left and front Self-Care/Home Management Treatment Education Patient Education Home Exercise Program Other Education pt was elevated in urge deference technique and bladder retraining PT-OP-T Assessment and Plan Start: 09/24/22 08:54 Freq: Status: Active Protocol: Document 11/07/22 09:01 [facility] (Rec: 11/07/22 09:12 [facility] [id number]) Physical Therapy Plan Frequency and Duration Frequency of Treatment 1x/Week Duration of treatment (weeks) 12 Plan of Care Start Date 09/24/22 Plan of Care End Date 12/17/22 Therapeutic Interventions Therapeutic Interventions Home Exercise Program,Manual Therapy,Neuromuscular Re- education,Patient/Caregiver Education,Self-Care/Home Management,Soft Tissue Mobilization,Therapeutic Exercises Modalities Biofeedback,Electric Stimulation Next Visit Focus/Plan Next Note Type Treatment Note Next Visit Plan continue with NMES and EMG biofeedback working on improved endurance of the pelvic floor. Review urge deference technique next visit
--- NOTE | 2022-11-21 17:09 | PT.OTN ---
Current Diagnoses Stress incontinence (female) (male) (11/21/22) Cystocele, midline (11/21/22) Female genital prolapse, unspecified (11/21/22) Physical Therapy Treatment Note PT-OP-A Visit Information Start: 09/24/22 08:54 Freq: Status: Active Protocol: Document 11/21/22 09:03 [facility] (Rec: 11/21/22 09:48 [facility] [id number]) Out-Patient Physical Therapy Visit Information Visit Information Visit Type Treatment Note Visit Start Time 09:01 Visit Stop Time 09:45 Total Visit Minutes 45 Visit Number 3 PT-OP-B Current Condition Start: 09/24/22 08:54 Freq: Status: Active Protocol: Document 09/24/22 10:30 [facility] (Rec: 09/24/22 11:35 [facility] [id number]) Current Condition History of Current Condition Onset Date 2018 symtoms began following her partial hysterectomy Current Complaints pelvic pressure, urgency and frequency to void History of Current Condition c section 28 years ago. since her surgery of partial hysterectomy and bladder lift 2018 she has felt different, intercourse felt different different, heaviness of her bladder in the am, she has urgency and frequency, she has to bear down to make her urine come out fast. Before her partial hysterectomy she had one surgery to remove cysts on her ovaries, she did a hysterectomy due to cysts and uterine prolapse she also had urgency. Pt has MS and she works on natural ways to manage her symptoms. She has had right sided tightness, her ITB is tight on the right side. She had a injection in L5 in may 2021 and she did have relief pt takes dandilion root for bowl movements. MS diagnosis january 2015 PT-OP-C Subjective Start: 09/24/22 08:54 Freq: Status: Active Protocol: Document 11/21/22 09:03 [facility] (Rec: 11/21/22 09:48 [facility] [id number]) OP-PT Subjective Patient Comments Patient Comments pt feels slightly more sensation after NMES, using the ball helped her the find the anterior pelvic floor, she notes she hasn't felt the pelvic pressure since starting therapy pt started a better me pilates program. PT-OP-I Pelvic Floor Start: 09/24/22 08:54 Freq: Status: Active Protocol: Document 11/07/22 09:12 [facility] (Rec: 11/07/22 09:33 [facility] [id number]) Pelvic Floor Assessment Contraction Ability Voluntary Contraction Weak Voluntary Relaxation Moderate Manual Muscle Testing Left 1 Manual Muscle Testing Right 1 Manual Muscle Testing Anterior 1 Manual Muscle Testing Posterior 1 Muscle Endurance (Seconds) 2 Comments Pelvic Floor Comments pt reports her entire right side is always her problem side, history of L4-5 bulging disc on the right side. PT-OP-J Posture/Palpation/Skin Start: 09/24/22 08:54 Freq: Status: Active Protocol: Document 09/24/22 10:30 [facility] (Rec: 09/26/22 17:26 [facility] [id number]) Palpation Assessment Location scar Palpation Details tenderness to palpation over the scar, myofascial restrictions noted in the region of the suprapubic fascia and Joey notes she does not like any pressure over her lower abdominal wall. PT-OP-Q Treatments Start: 09/24/22 08:54 Freq: Status: Active Protocol: Document 11/21/22 09:03 [facility] (Rec: 11/21/22 09:48 [facility] [id number]) Therapeutic Exercises Supine Exercises pelvic floor long holds Comments 5.2 average and max of 10 uv pelvic floor contractions with ball squeeze Reps/Minutes 5 sec hold x 10 sec relax x 10 reps Comments pt was instructed in elevating her pelvis for this exercise Neuro Re-Education Treatment Other Activities NMES for the pelvic floor Details with vaginal sensor Reps/Duration 15 Comments started at level 10 only feels the sensation on the left and front PT-OP-T Assessment and Plan Start: 09/24/22 08:54 Freq: Status: Active Protocol: Document 11/21/22 09:03 [facility] (Rec: 11/21/22 17:09 [facility] [id number]) Physical Therapy Assessment Goals Three Impairment Decreased pelvic floor endurance with poor ability to sustain a contraction more than 1-2 seconds in supine Short Term Goal (STG) Joey is able to increase her endurance holds to 10 second holds in supine STG Duration x 8 weeks Custodial Goal (LTG) Joey is able to sustain a pelvic floor contraction x 10 seconds in standing LTG Duration x 12 weeks Two Impairment pelvic floor muscle weakness with pelvic organ prolapse and c/o heaviness and pressure Short Term Goal (STG) Joey is educated on pelvic floor facilitation of all aspects of the pelvic floor and is given pelvic decompression exercises to help decrease c/o pelvic heaviness and pressure STG Duration 4 weeks Custodial Goal (LTG) Joey is able to increase the sterngth of her pelvic floor to 3/5 MMT for all hill of the levator ani or better for improved bladder and vaginal wall support LTG Duration 12 weeks One Impairment urinary frequency and urgency to void with pt waking 2 times at night to void and voiding 12+ times during the day Short Term Goal (STG) Joey is educated in urge deference technique and bladder retraining to begin increasing the time between voids. STG Duration 4 weeks Custodial Goal (LTG) Joey is able to extend the time between voids to every 2- 3 hours during the day and is waking only 1 time at night to void. LTG Duration 12 weeks Assessment Summary Assessment Trial of pelvis elevated as well as flat with NMES, Joey did better with her pelvis flat today. She has not been feeling the pelvic pressure. Will add in lateral hip stabilizating exercises next visit Physical Therapy Plan Frequency and Duration Frequency of Treatment 1x/Week Duration of treatment (weeks) 12 Plan of Care Start Date 09/24/22 Plan of Care End Date 12/17/22 Therapeutic Interventions Therapeutic Interventions Home Exercise Program,Manual Therapy,Neuromuscular Re- education,Patient/Caregiver Education,Self-Care/Home Management,Soft Tissue Mobilization,Therapeutic Exercises Modalities Biofeedback,Electric Stimulation Next Visit Focus/Plan Next Note Type Treatment Note Next Visit Plan continue with NMES and EMG biofeedback, add in lateral hip stabilizing exercises review urge deference technique
--- NOTE | 2022-11-28 17:26 | PT.OTN ---
Current Diagnoses Stress incontinence (female) (male) (11/28/22) Cystocele, midline (11/28/22) Female genital prolapse, unspecified (11/28/22) Physical Therapy Treatment Note PT-OP-A Visit Information Start: 09/24/22 08:54 Freq: Status: Active Protocol: Document 11/28/22 09:00 [facility] (Rec: 11/28/22 09:25 [facility] [id number]) Out-Patient Physical Therapy Visit Information Visit Information Visit Type Treatment Note Visit Start Time 09:00 Visit Stop Time 09:45 Total Visit Minutes 45 Visit Number 4 PT-OP-B Current Condition Start: 09/24/22 08:54 Freq: Status: Active Protocol: Document 09/24/22 10:30 [facility] (Rec: 09/24/22 11:35 [facility] [id number]) Current Condition History of Current Condition Onset Date 2018 symtoms began following her partial hysterectomy Current Complaints pelvic pressure, urgency and frequency to void History of Current Condition c section 28 years ago. since her surgery of partial hysterectomy and bladder lift 2018 she has felt different, intercourse felt different different, heaviness of her bladder in the am, she has urgency and frequency, she has to bear down to make her urine come out fast. Before her partial hysterectomy she had one surgery to remove cysts on her ovaries, she did a hysterectomy due to cysts and uterine prolapse she also had urgency. Pt has MS and she works on natural ways to manage her symptoms. She has had right sided tightness, her ITB is tight on the right side. She had a injection in L5 in may 2021 and she did have relief pt takes dandilion root for bowl movements. MS diagnosis january 2015 PT-OP-C Subjective Start: 09/24/22 08:54 Freq: Status: Active Protocol: Document 11/28/22 09:00 [facility] (Rec: 11/28/22 09:25 [facility] [id number]) OP-PT Subjective Patient Comments Patient Comments pt is not feeling any pelvic pressure, she notes a smell with her urine and she is peeing a lot more than she usually does, no pain. Patient Reported Progress Improving PT-OP-I Pelvic Floor Start: 09/24/22 08:54 Freq: Status: Active Protocol: Document 11/07/22 09:12 [facility] (Rec: 11/07/22 09:33 [facility] [id number]) Pelvic Floor Assessment Contraction Ability Voluntary Contraction Weak Voluntary Relaxation Moderate Manual Muscle Testing Left 1 Manual Muscle Testing Right 1 Manual Muscle Testing Anterior 1 Manual Muscle Testing Posterior 1 Muscle Endurance (Seconds) 2 Comments Pelvic Floor Comments pt reports her entire right side is always her problem side, history of L4-5 bulging disc on the right side. PT-OP-J Posture/Palpation/Skin Start: 09/24/22 08:54 Freq: Status: Active Protocol: Document 09/24/22 10:30 [facility] (Rec: 09/26/22 17:26 [facility] [id number]) Palpation Assessment Location scar Palpation Details tenderness to palpation over the scar, myofascial restrictions noted in the region of the suprapubic fascia and Joey notes she does not like any pressure over her lower abdominal wall. PT-OP-Q Treatments Start: 09/24/22 08:54 Freq: Status: Active Protocol: Document 11/28/22 09:00 [facility] (Rec: 11/28/22 09:25 [facility] [id number]) Therapeutic Exercises Supine Exercises quick pelvic floor contractions Reps/Minutes x 10 reps pelvic floor long holds Reps/Minutes used ball as assist for 10 sec hold contractions Comments 4.8 max of 8.0 uv Sidelying Exercises sidelying hip circles Reps/Minutes 2 x 10 sidelying clam shells Reps/Minutes 2 x 10 Neuro Re-Education Treatment Other Activities NMES for the pelvic floor Details with vaginal sensor Reps/Duration 10 Comments pt started at level 17 and she could feel more in the front and mark even, moved up to level 18 and was aware that she could feel sensation in all of her pelvic floor PT-OP-T Assessment and Plan Start: 09/24/22 08:54 Freq: Status: Active Protocol: Document 11/28/22 09:00 [facility] (Rec: 11/28/22 09:25 [facility] [id number]) Physical Therapy Assessment Goals Three Impairment Decreased pelvic floor endurance with poor ability to sustain a contraction more than 1-2 seconds in supine Short Term Goal (STG) Joey is able to increase her endurance holds to 10 second holds in supine STG Duration x 8 weeks Shelter Goal (LTG) Joey is able to sustain a pelvic floor contraction x 10 seconds in standing LTG Duration x 12 weeks Two Impairment pelvic floor muscle weakness with pelvic organ prolapse and c/o heaviness and pressure Short Term Goal (STG) Joey is educated on pelvic floor facilitation of all aspects of the pelvic floor and is given pelvic decompression exercises to help decrease c/o pelvic heaviness and pressure STG Duration 4 weeks Smoking Tobacco Packing Machine Hand Goal (LTG) Joey is able to increase the sterngth of her pelvic floor to 3/5 MMT for all hill of the levator ani or better for improved bladder and vaginal wall support LTG Duration 12 weeks One Impairment urinary frequency and urgency to void with pt waking 2 times at night to void and voiding 12+ times during the day Short Term Goal (STG) Joey is educated in urge deference technique and bladder retraining to begin increasing the time between voids. STG Duration 4 weeks Smoking Tobacco Packing Machine Hand Goal (LTG) Joey is able to extend the time between voids to every 2- 3 hours during the day and is waking only 1 time at night to void. LTG Duration 12 weeks Assessment Summary Assessment Advised Joey to get a urine culture just in case due to odor with voiding, she was a little bit more guarded on EMG biofeeback today and her strength was not as much. SHe is feeling more sensation in her pelvic floor with NMES now Physical Therapy Plan Frequency and Duration Frequency of Treatment 1x/Week Duration of treatment (weeks) 12 Plan of Care Start Date 09/24/22 Plan of Care End Date 12/17/22 Therapeutic Interventions Therapeutic Interventions Home Exercise Program,Manual Therapy,Neuromuscular Re- education,Patient/Caregiver Education,Self-Care/Home Management,Soft Tissue Mobilization,Therapeutic Exercises Modalities Biofeedback,Electric Stimulation Next Visit Focus/Plan Next Note Type Treatment Note Next Visit Plan review lateral hip strengthening exercises, progress to templates on EMG biofeedback, review urge deference technique
--- NOTE | 2022-12-05 10:10 | PT.OTN ---
Current Diagnoses Stress incontinence (female) (male) (12/05/22) Cystocele, midline (12/05/22) Female genital prolapse, unspecified (12/05/22) Physical Therapy Treatment Note PT-OP-A Visit Information Start: 09/24/22 08:54 Freq: Status: Active Protocol: Document 12/05/22 09:04 [facility] (Rec: 12/05/22 09:48 [facility] [id number]) Out-Patient Physical Therapy Visit Information Visit Information Visit Type Treatment Note Visit Start Time 09:00 Visit Stop Time 09:45 Total Visit Minutes 45 Visit Number 5 PT-OP-B Current Condition Start: 09/24/22 08:54 Freq: Status: Active Protocol: Document 09/24/22 10:30 [facility] (Rec: 09/24/22 11:35 [facility] [id number]) Current Condition History of Current Condition Onset Date 2018 symtoms began following her partial hysterectomy Current Complaints pelvic pressure, urgency and frequency to void History of Current Condition c section 28 years ago. since her surgery of partial hysterectomy and bladder lift 2018 she has felt different, intercourse felt different different, heaviness of her bladder in the am, she has urgency and frequency, she has to bear down to make her urine come out fast. Before her partial hysterectomy she had one surgery to remove cysts on her ovaries, she did a hysterectomy due to cysts and uterine prolapse she also had urgency. Pt has MS and she works on natural ways to manage her symptoms. She has had right sided tightness, her ITB is tight on the right side. She had a injection in L5 in may 2021 and she did have relief pt takes dandilion root for bowl movements. MS diagnosis january 2015 PT-OP-C Subjective Start: 09/24/22 08:54 Freq: Status: Active Protocol: Document 12/05/22 09:04 [facility] (Rec: 12/05/22 09:48 [facility] [id number]) OP-PT Subjective Patient Comments Patient Comments pt is feeling like things are a little bit better. SHe is finding it difficult to fit in her exercises more than one time per day. Urgency is a little better, no complaints of pelvic pressure PT-OP-I Pelvic Floor Start: 09/24/22 08:54 Freq: Status: Active Protocol: Document 11/07/22 09:12 [facility] (Rec: 11/07/22 09:33 [facility] [id number]) Pelvic Floor Assessment Contraction Ability Voluntary Contraction Weak Voluntary Relaxation Moderate Manual Muscle Testing Left 1 Manual Muscle Testing Right 1 Manual Muscle Testing Anterior 1 Manual Muscle Testing Posterior 1 Muscle Endurance (Seconds) 2 Comments Pelvic Floor Comments pt reports her entire right side is always her problem side, history of L4-5 bulging disc on the right side. PT-OP-J Posture/Palpation/Skin Start: 09/24/22 08:54 Freq: Status: Active Protocol: Document 09/24/22 10:30 [facility] (Rec: 09/26/22 17:26 [facility] [id number]) Palpation Assessment Location scar Palpation Details tenderness to palpation over the scar, myofascial restrictions noted in the region of the suprapubic fascia and Joey notes she does not like any pressure over her lower abdominal wall. PT-OP-Q Treatments Start: 09/24/22 08:54 Freq: Status: Active Protocol: Document 12/05/22 09:04 [facility] (Rec: 12/05/22 09:48 [facility] [id number]) Therapeutic Exercises Supine Exercises tempates for coordination and eccentric control Reps/Minutes x 8 min modified pelvic floor stretch Reps/Minutes hold 1-2 min quick pelvic floor contractions Reps/Minutes x 10 reps pelvic floor long holds Reps/Minutes used ball as assist for 10 sec hold contractions Comments 5.0 max of 11.3 pelvic floor contractions with ball squeeze Reps/Minutes 5 sec hold x 10 sec relax x 10 reps Comments pt was instructed in elevating her pelvis for this exercise Neuro Re-Education Treatment Other Activities NMES for the pelvic floor Details with vaginal sensor Reps/Duration 10 Comments pt notes she can feel the sensor deeper now and on the right side. Self-Care/Home Management Treatment Education Patient Education Home Exercise Program Other Education education on pelvic floor engagement prior to standing and to do urge technique before she gets out of bed. PT-OP-T Assessment and Plan Start: 09/24/22 08:54 Freq: Status: Active Protocol: Document 12/05/22 09:04 [facility] (Rec: 12/05/22 09:48 [facility] [id number]) Physical Therapy Assessment Goals Three Impairment Decreased pelvic floor endurance with poor ability to sustain a contraction more than 1-2 seconds in supine Short Term Goal (STG) Joey is able to increase her endurance holds to 10 second holds in supine STG Duration x 8 weeks [facility] Goal (LTG) Joey is able to sustain a pelvic floor contraction x 10 seconds in standing LTG Duration x 12 weeks Two Impairment pelvic floor muscle weakness with pelvic organ prolapse and c/o heaviness and pressure Short Term Goal (STG) Joey is educated on pelvic floor facilitation of all aspects of the pelvic floor and is given pelvic decompression exercises to help decrease c/o pelvic heaviness and pressure STG Duration 4 weeks [facility] Goal (LTG) Joye is able to increase the sterngth of her pelvic floor to 3/5 MMT for all hill of the levator ani or better for improved bladder and vaginal wall support LTG Duration 12 weeks One Impairment urinary frequency and urgency to void with pt waking 2 times at night to void and voiding 12+ times during the day Short Term Goal (STG) Joey is educated in urge deference technique and bladder retraining to begin increasing the time between voids. GOAL MET STG Duration 4 weeks [facility] Goal (LTG) Joey is able to extend the time between voids to every 2- 3 hours during the day and is waking only 1 time at night to void. waking 1 time per night to void LTG Duration 12 weeks Assessment Summary Assessment working on new positions to try to facilitate improved pelvic floor contraction. Added in eccentric conrol with templates on EMG biofeedback Physical Therapy Plan Frequency and Duration Frequency of Treatment 1x/Week Duration of treatment (weeks) 12 Plan of Care Start Date 09/24/22 Plan of Care End Date 12/17/22 Next Visit Focus/Plan Next Note Type Treatment Note Next Visit Plan review lateral hip strengthening exercises, continue with NMES and biofeedback, work on sit-stand and try stomach laying pelvic floor recruitment
--- NOTE | 2023-01-30 12:11 | PT.OTRE ---
Current Diagnoses Stress incontinence (female) (male) (01/30/23) Cystocele, midline (01/30/23) Female genital prolapse, unspecified (01/30/23) Past Medical History (Last Reviewed 05/30/21 @ 15:56 by Deandre Russo DO) Lumbar radiculopathy Scoliosis Stress incontinence in female Surgical History (Last Reviewed 05/30/21 @ 15:56 by Deandre Russo DO) S/P laparoscopic assisted vaginal hysterectomy (LAVH) (02/11/19) Status post delivery Status post endometrial ablation Visit Care Team Role Provider Type Donovan Tarango MD Family Provider Physician Primary Care Provider Specialty: Family Practice Address: [address] [place] [address] Email: [email or web address] Xin Salcedo MD Attending Provider Physician Referring Provider Specialty: Gynecology 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 Address: [address] [place] [address] Email: [email or web address] Physical Therapy Re-Evaluation PT-OP-A Visit Information Start: 09/24/22 08:54 Freq: Status: Active Protocol: Document 01/30/23 09:50 [facility] (Rec: 01/30/23 10:29 [facility] [id number]) Out-Patient Physical Therapy Visit Information Visit Information Visit Type Treatment Note Visit Start Time 09:50 Visit Stop Time 10:30 Total Visit Minutes 40 Visit Number 6 PT-OP-B Current Condition Start: 09/24/22 08:54 Freq: Status: Active Protocol: Document 09/24/22 10:30 [facility] (Rec: 09/24/22 11:35 [facility] [id number]) Current Condition History of Current Condition Onset Date 2018 symtoms began following her partial hysterectomy Current Complaints pelvic pressure, urgency and frequency to void History of Current Condition c section 28 years ago. since her surgery of partial hysterectomy and bladder lift 2018 she has felt different, intercourse felt different different, heaviness of her bladder in the am, she has urgency and frequency, she has to bear down to make her urine come out fast. Before her partial hysterectomy she had one surgery to remove cysts on her ovaries, she did a hysterectomy due to cysts and uterine prolapse she also had urgency. Pt has MS and she works on natural ways to manage her symptoms. She has had right sided tightness, her ITB is tight on the right side. She had a injection in L5 in may 2021 and she did have relief pt takes dandilion root for bowl movements. MS diagnosis january 2015 PT-OP-C Subjective Start: 09/24/22 08:54 Freq: Status: Active Protocol: Document 01/30/23 09:50 [facility] (Rec: 01/30/23 10:29 [facility] [id number]) OP-PT Subjective Patient Comments Patient Comments she purchased the danny fit and has just started using it. She finds the urgency and urge incontinence is gone but she has had lots of moments of barely making it to the bathroom. She is not feeling any pressure from her bladder PT-OP-I Pelvic Floor Start: 09/24/22 08:54 Freq: Status: Active Protocol: Document 01/30/23 11:57 [facility] (Rec: 01/30/23 11:57 [facility] [id number]) Pelvic Floor Assessment Contraction Ability Manual Muscle Testing Left 2 Manual Muscle Testing Right 2 Manual Muscle Testing Anterior 1 Manual Muscle Testing Posterior 1 Muscle Endurance (Seconds) 5 PT-OP-J Posture/Palpation/Skin Start: 09/24/22 08:54 Freq: Status: Active Protocol: Document 09/24/22 10:30 [facility] (Rec: 09/26/22 17:26 [facility] [id number]) Palpation Assessment Location scar Palpation Details tenderness to palpation over the scar, myofascial restrictions noted in the region of the suprapubic fascia and Joey notes she does not like any pressure over her lower abdominal wall. PT-OP-Q Treatments Start: 09/24/22 08:54 Freq: Status: Active Protocol: Document 01/30/23 09:50 [facility] (Rec: 01/30/23 11:56 [facility] [id number]) Therapeutic Exercises Supine Exercises pelvic floor long holds Comments these were done with manual recheck today of the pelvic floor Sidelying Exercises sidelying pelvic floor facilitation Reps/Minutes pt had less activation of her obliques on her side Comments Joey was able to feel the pelvci floor more on her side Other Exercises side planks agains the wall Comments pts right side knee was sore with these quadruped TA Reps/Minutes x 5 reps Comments worked on TA cuing Manual Therapy Treatment Manual Techniques manual recheck of the pelvic floor Body Position Hooklying Comments recheck of pelvic floor muscle tone, pt still has difficulty recruiting her pelvic floor without upper abdominal substitution. PT-OP-T Assessment and Plan Start: 09/24/22 08:54 Freq: Status: Active Protocol: Document 01/30/23 09:50 [facility] (Rec: 01/30/23 10:29 [facility] [id number]) Physical Therapy Assessment Goals Three Impairment Decreased pelvic floor endurance with poor ability to sustain a contraction more than 1-2 seconds in supine Short Term Goal (STG) Joey is able to increase her endurance holds to 10 second holds in supine Joey is making good progress but it is still difficult to hold more than 5 seconds STG Duration x 8 weeks [employer] Goal (LTG) Joey is able to sustain a pelvic floor contraction x 10 seconds in standing Goal not yet met LTG Duration x 12 weeks Two Impairment pelvic floor muscle weakness with pelvic organ prolapse and c/o heaviness and pressure Short Term Goal (STG) Joey is educated on pelvic floor facilitation of all aspects of the pelvic floor and is given pelvic decompression exercises to help decrease c/o pelvic heaviness and pressure goal met STG Duration 4 weeks [facility] Goal (LTG) Joey is able to increase the sterngth of her pelvic floor to 3/5 MMT for all hill of the levator ani or better for improved bladder and vaginal wall support as of 01/30/23 the lateral hill test 2/5 MMT now but still 1/ 5 for anterior and posterior pelvic floor LTG Duration 12 weeks One Impairment urinary frequency and urgency to void with pt waking 2 times at night to void and voiding 12+ times during the day Short Term Goal (STG) Joey is educated in urge deference technique and bladder retraining to begin increasing the time between voids. GOAL MET STG Duration 4 weeks [employer] Goal (LTG) Joey is able to extend the time between voids to every 2- 3 hours during the day and is waking only 1 time at night to void. waking 1 time per night to void GOAL MET LTG Duration 12 weeks Assessment Summary Assessment Joey returns to PT after not being seen since November. She has been using the home biofeedback unit the danny fit the last few weeks. She is not experiencing the urgency or the pelvic pressure she was but still experiences stress incontinence with higher level exercise. With re-eval today she has better recruitment of the lateral hill of the levator ani but still has difficulty with posterior and anterior hill. Time was spent in sidelying today working on pelvic floor recruitment without upper abdominal substition. She felt her pelvic floor more in this position and will work with the perifit at home in sidelying. Joey would benefit from continued PT and use of the NMES in the clinic. Physical Therapy Plan Frequency and Duration Frequency of Treatment 1x/Week Duration of treatment (weeks) 8 Plan of Care Start Date 01/30/23 Plan of Care End Date 03/27/23 Therapeutic Interventions Therapeutic Interventions Home Exercise Program,Manual Therapy,Neuromuscular Re- education,Patient/Caregiver Education,Self-Care/Home Management,Soft Tissue Mobilization,Therapeutic Exercises Modalities Biofeedback,Electric Stimulation Next Visit Focus/Plan Next Note Type Treatment Note Next Visit Plan continue with NMES for the pelvic floor and EMG biofeedback working on endurance and anterior pelvic floor recruitment
--- NOTE | 2023-01-30 12:11 | PT.OPPOC ---
Physical, Occupational & Speech Therapy At [facility] Current Diagnoses Stress incontinence (female) (male) (01/30/23) Cystocele, midline (01/30/23) Female genital prolapse, unspecified (01/30/23) Visit Care Team Role Provider Type Donovan Tarango MD Family Provider Physician Primary Care Provider Specialty: Family Practice Address: [address] [place] [address] Email: [email or web address] Xin Salcedo MD Attending Provider Physician Referring Provider Specialty: Gynecology CLINICAL LAB CLERK Obstetrics Address: [address] [place] [address], [address] Email: [email or web address] Plan Of Care PT-OP-T Assessment and Plan Start: 09/24/22 08:54 Freq: Status: Active Protocol: Document 01/30/23 09:50 [facility] (Rec: 01/30/23 10:29 [facility] [id number]) Physical Therapy Assessment Goals Three Impairment Decreased pelvic floor endurance with poor ability to sustain a contraction more than 1-2 seconds in supine Short Term Goal (STG) Joey is able to increase her endurance holds to 10 second holds in supine Joey is making good progress but it is still difficult to hold more than 5 seconds STG Duration x 8 weeks Half-Way Goal (LTG) Joey is able to sustain a pelvic floor contraction x 10 seconds in standing Goal not yet met LTG Duration x 12 weeks Two Impairment pelvic floor muscle weakness with pelvic organ prolapse and c/o heaviness and pressure Short Term Goal (STG) Joey is educated on pelvic floor facilitation of all aspects of the pelvic floor and is given pelvic decompression exercises to help decrease c/o pelvic heaviness and pressure goal met STG Duration 4 weeks Half-Way Goal (LTG) Joey is able to increase the strength of her pelvic floor to 3/5 MMT for all hill of the levator ani or better for improved bladder and vaginal wall support as of 01/30/23 the lateral hill test 2/5 MMT now but still 1/ 5 for anterior and posterior pelvic floor LTG Duration 12 weeks One Impairment urinary frequency and urgency to void with pt waking 2 times at night to void and voiding 12+ times during the day Short Term Goal (STG) Joey is educated in urge deference technique and bladder retraining to begin increasing the time between voids. GOAL MET STG Duration 4 weeks Half-Way Goal (LTG) Joey is able to extend the time between voids to every 2- 3 hours during the day and is waking only 1 time at night to void. waking 1 time per night to void GOAL MET LTG Duration 12 weeks Assessment Summary Assessment Joey returns to PT after not being seen since November. She has been using the home biofeedback unit the danny fit the last few weeks. She is not experiencing the urgency or the pelvic pressure she was but still experiences stress incontinence with higher level exercise. With re-eval today she has better recruitment of the lateral hill of the levator ani but still has difficulty with posterior and anterior hill. Time was spent in sidelying today working on pelvic floor recruitment without upper abdominal substitution. She felt her pelvic floor more in this position and will work with the perifit at home in sidelying. Joey would benefit from continued PT and use of the NMES in the clinic. Physical Therapy Plan Frequency and Duration Frequency of Treatment 1x/Week Duration of treatment (weeks) 8 Plan of Care Start Date 01/30/23 Plan of Care End Date 03/27/23 Therapeutic Interventions Therapeutic Interventions Home Exercise Program,Manual Therapy,Neuromuscular Re- education,Patient/Caregiver Education,Self-Care/Home Management,Soft Tissue Mobilization,Therapeutic Exercises Modalities Biofeedback,Electric Stimulation Next Visit Focus/Plan Next Note Type Treatment Note Next Visit Plan continue with NMES for the pelvic floor and EMG biofeedback working on endurance and anterior pelvic floor recruitment Plan of Care Dates Plan of Care Start Date 01/30/23 Plan of Care End Date 03/27/23 Electronically Signed by: Susan Rg, PT 01/30/23 [id number] If you are in agreement with this Plan of Care, please return a signed and dated copy. I have reviewed this Plan of Care and certify that the skilled therapy services above are required to meet the patient?s needs. Physician Signature Date Printed Name and Credentials Clinical Instructor Signature Printed Name and Credentials
--- NOTE | 2023-01-30 12:15 | PT.OPPN ---
Current Diagnoses Stress incontinence (female) (male) (01/30/23) Cystocele, midline (01/30/23) Female genital prolapse, unspecified (01/30/23) Physical Therapy Progress Note PT-OP-A Visit Information Start: 09/24/22 08:54 Freq: Status: Active Protocol: Document 01/30/23 09:50 [facility] (Rec: 01/30/23 10:29 [facility] [id number]) Out-Patient Physical Therapy Visit Information Visit Information Visit Type Progress Note Visit Start Time 09:50 Visit Stop Time 10:30 Total Visit Minutes 40 Visit Number 6 PT-OP-B Current Condition Start: 09/24/22 08:54 Freq: Status: Active Protocol: Document 09/24/22 10:30 [facility] (Rec: 09/24/22 11:35 [facility] [id number]) Current Condition History of Current Condition Onset Date 2018 symtoms began following her partial hysterectomy Current Complaints pelvic pressure, urgency and frequency to void History of Current Condition c section 28 years ago. since her surgery of partial hysterectomy and bladder lift 2018 she has felt different, intercourse felt different different, heaviness of her bladder in the am, she has urgency and frequency, she has to bear down to make her urine come out fast. Before her partial hysterectomy she had one surgery to remove cysts on her ovaries, she did a hysterectomy due to cysts and uterine prolapse she also had urgency. Pt has MS and she works on natural ways to manage her symptoms. She has had right sided tightness, her ITB is tight on the right side. She had a injection in L5 in may 2021 and she did have relief pt takes dandilion root for bowl movements. MS diagnosis january 2015 PT-OP-C Subjective Start: 09/24/22 08:54 Freq: Status: Active Protocol: Document 01/30/23 09:50 [facility] (Rec: 01/30/23 10:29 [facility] [id number]) OP-PT Subjective Patient Comments Patient Comments she purchased the danny fit and has just started using it. She finds the urgency and urge incontinence is gone but she has had lots of moments of barely making it to the bathroom. She is not feeling any pressure from her bladder PT-OP-I Pelvic Floor Start: 09/24/22 08:54 Freq: Status: Active Protocol: Document 01/30/23 11:57 [facility] (Rec: 01/30/23 11:57 [facility] [id number]) Pelvic Floor Assessment Contraction Ability Manual Muscle Testing Left 2 Manual Muscle Testing Right 2 Manual Muscle Testing Anterior 1 Manual Muscle Testing Posterior 1 Muscle Endurance (Seconds) 5 PT-OP-J Posture/Palpation/Skin Start: 09/24/22 08:54 Freq: Status: Active Protocol: Document 09/24/22 10:30 [facility] (Rec: 09/26/22 17:26 [facility] [id number]) Palpation Assessment Location scar Palpation Details tenderness to palpation over the scar, myofascial restrictions noted in the region of the suprapubic fascia and Joey notes she does not like any pressure over her lower abdominal wall. PT-OP-T Assessment and Plan Start: 09/24/22 08:54 Freq: Status: Active Protocol: Document 01/30/23 09:50 [facility] (Rec: 01/30/23 10:29 [facility] [id number]) Physical Therapy Assessment Goals Three Impairment Decreased pelvic floor endurance with poor ability to sustain a contraction more than 1-2 seconds in supine Short Term Goal (STG) Joey is able to increase her endurance holds to 10 second holds in supine Joey is making good progress but it is still difficult to hold more than 5 seconds STG Duration x 8 weeks [employer] Goal (LTG) Joey is able to sustain a pelvic floor contraction x 10 seconds in standing Goal not yet met LTG Duration x 12 weeks Two Impairment pelvic floor muscle weakness with pelvic organ prolapse and c/o heaviness and pressure Short Term Goal (STG) Joey is educated on pelvic floor facilitation of all aspects of the pelvic floor and is given pelvic decompression exercises to help decrease c/o pelvic heaviness and pressure goal met STG Duration 4 weeks [facility] Goal (LTG) Joey is able to increase the sterngth of her pelvic floor to 3/5 MMT for all hill of the levator ani or better for improved bladder and vaginal wall support as of 01/30/23 the lateral hill test 2/5 MMT now but still 1/ 5 for anterior and posterior pelvic floor LTG Duration 12 weeks One Impairment urinary frequency and urgency to void with pt waking 2 times at night to void and voiding 12+ times during the day Short Term Goal (STG) Joey is educated in urge deference technique and bladder retraining to begin increasing the time between voids. GOAL MET STG Duration 4 weeks [facility] Goal (LTG) Joey is able to extend the time between voids to every 2- 3 hours during the day and is waking only 1 time at night to void. waking 1 time per night to void GOAL MET LTG Duration 12 weeks Assessment Summary Assessment Joey returns to PT after not being seen since November. She has been using the home biofeedback unit the danny fit the last few weeks. She is not experiencing the urgency or the pelvic pressure she was but still experiences stress incontinence with higher level exercise. With re-eval today she has better recruitment of the lateral hill of the levator ani but still has difficulty with posterior and anterior hill. Time was spent in sidelying today working on pelvic floor recruitment without upper abdominal substition. She felt her pelvic floor more in this position and will work with the perifit at home in sidelying. Joey would benefit from continued PT and use of the NMES in the clinic. Physical Therapy Plan Frequency and Duration Frequency of Treatment 1x/Week Duration of treatment (weeks) 8 Plan of Care Start Date 01/30/23 Plan of Care End Date 03/27/23 Therapeutic Interventions Therapeutic Interventions Home Exercise Program,Manual Therapy,Neuromuscular Re- education,Patient/Caregiver Education,Self-Care/Home Management,Soft Tissue Mobilization,Therapeutic Exercises Modalities Biofeedback,Electric Stimulation Next Visit Focus/Plan Next Note Type Treatment Note Next Visit Plan continue with NMES for the pelvic floor and EMG biofeedback working on endurance and anterior pelvic floor recruitment
--- NOTE | 2023-02-13 17:30 | PT.OTN ---
Current Diagnoses Stress incontinence (female) (male) (02/13/23) Cystocele, midline (02/13/23) Female genital prolapse, unspecified (02/13/23) Physical Therapy Treatment Note PT-OP-A Visit Information Start: 09/24/22 08:54 Freq: Status: Active Protocol: Document 02/13/23 09:00 [facility] (Rec: 02/13/23 09:47 [facility] [id number]) Out-Patient Physical Therapy Visit Information Visit Information Visit Type Treatment Note Visit Start Time 09:00 Visit Stop Time 09:45 Total Visit Minutes 45 Visit Number 7 PT-OP-B Current Condition Start: 09/24/22 08:54 Freq: Status: Active Protocol: Document 09/24/22 10:30 [facility] (Rec: 09/24/22 11:35 [facility] [id number]) Current Condition History of Current Condition Onset Date 2018 symtoms began following her partial hysterectomy Current Complaints pelvic pressure, urgency and frequency to void History of Current Condition c section 28 years ago. since her surgery of partial hysterectomy and bladder lift 2018 she has felt different, intercourse felt different different, heaviness of her bladder in the am, she has urgency and frequency, she has to bear down to make her urine come out fast. Before her partial hysterectomy she had one surgery to remove cysts on her ovaries, she did a hysterectomy due to cysts and uterine prolapse she also had urgency. Pt has MS and she works on natural ways to manage her symptoms. She has had right sided tightness, her ITB is tight on the right side. She had a injection in L5 in may 2021 and she did have relief pt takes dandilion root for bowl movements. MS diagnosis january 2015 PT-OP-C Subjective Start: 09/24/22 08:54 Freq: Status: Active Protocol: Document 02/13/23 09:00 [facility] (Rec: 02/13/23 09:47 [facility] [id number]) OP-PT Subjective Patient Comments Patient Comments Joey notes she is bearing down when using the danny fit and is not able to use it in sidelying as it disconnects PT-OP-I Pelvic Floor Start: 09/24/22 08:54 Freq: Status: Active Protocol: Document 01/30/23 11:57 [facility] (Rec: 01/30/23 11:57 [facility] [id number]) Pelvic Floor Assessment Contraction Ability Manual Muscle Testing Left 2 Manual Muscle Testing Right 2 Manual Muscle Testing Anterior 1 Manual Muscle Testing Posterior 1 Muscle Endurance (Seconds) 5 PT-OP-J Posture/Palpation/Skin Start: 09/24/22 08:54 Freq: Status: Active Protocol: Document 09/24/22 10:30 [facility] (Rec: 09/26/22 17:26 [facility] [id number]) Palpation Assessment Location scar Palpation Details tenderness to palpation over the scar, myofascial restrictions noted in the region of the suprapubic fascia and Joey notes she does not like any pressure over her lower abdominal wall. PT-OP-Q Treatments Start: 09/24/22 08:54 Freq: Status: Active Protocol: Document 02/13/23 09:00 [facility] (Rec: 02/13/23 12:26 [facility] [id number]) Therapeutic Exercises Supine Exercises tempates for coordination and eccentric control Reps/Minutes x 8 min quick pelvic floor contractions Reps/Minutes x 10 reps pelvic floor long holds Reps/Minutes x 10 reps holding 10 seconds and relaxing 10 seconds Comments these were done with manual recheck today of the pelvic floor pelvic floor contractions with ball squeeze Reps/Minutes 5 sec hold x 10 sec relax x 10 reps Comments pt was instructed in elevating her pelvis for this exercise Neuro Re-Education Treatment Other Activities NMES for the pelvic floor Details with vaginal sensor Reps/Duration 15 Comments Joey had difficulty feeling any sensation today with her pelvic floor PT-OP-T Assessment and Plan Start: 09/24/22 08:54 Freq: Status: Active Protocol: Document 02/13/23 09:00 [facility] (Rec: 02/13/23 09:47 [facility] [id number]) Physical Therapy Assessment Goals Three Impairment Decreased pelvic floor endurance with poor ability to sustain a contraction more than 1-2 seconds in supine Short Term Goal (STG) Joey is able to increase her endurance holds to 10 second holds in supine Joey is making good progress but it is still difficult to hold more than 5 seconds STG Duration x 8 weeks Long-Term Goal (LTG) Joey is able to sustain a pelvic floor contraction x 10 seconds in standing Goal not yet met LTG Duration x 12 weeks Two Impairment pelvic floor muscle weakness with pelvic organ prolapse and c/o heaviness and pressure Short Term Goal (STG) Joey is educated on pelvic floor facilitation of all aspects of the pelvic floor and is given pelvic decompression exercises to help decrease c/o pelvic heaviness and pressure goal met STG Duration 4 weeks [employer] Goal (LTG) Joey is able to increase the sterngth of her pelvic floor to 3/5 MMT for all hill of the levator ani or better for improved bladder and vaginal wall support as of 01/30/23 the lateral hill test 2/5 MMT now but still 1/ 5 for anterior and posterior pelvic floor LTG Duration 12 weeks One Impairment urinary frequency and urgency to void with pt waking 2 times at night to void and voiding 12+ times during the day Short Term Goal (STG) Joey is educated in urge deference technique and bladder retraining to begin increasing the time between voids. GOAL MET STG Duration 4 weeks [employer] [facility] Hand Goal (LTG) Joey is able to extend the time between voids to every 2- 3 hours during the day and is waking only 1 time at night to void. waking 1 time per night to void GOAL MET LTG Duration 12 weeks Assessment Summary Assessment I advised Joey to contact the [employer] for possible faulty electrode as she is not bearing down with her contractions and is able to facilitate a contraction. She had difficulty feeling the sensation though today with pelvic floor neuro stimulation . We can do a trial of IFC over the sacrum next visit to see if this helps with pelvic floor facilitation and sensation Physical Therapy Plan Frequency and Duration Frequency of Treatment 1x/Week Duration of treatment (weeks) 8 Plan of Care Start Date 01/30/23 Plan of Care End Date 03/27/23 Therapeutic Interventions Therapeutic Interventions Home Exercise Program,Manual Therapy,Neuromuscular Re- education,Patient/Caregiver Education,Self-Care/Home Management,Soft Tissue Mobilization,Therapeutic Exercises Modalities Biofeedback,Electric Stimulation Next Visit Focus/Plan Next Note Type Treatment Note Next Visit Plan trial of work over the sacrum and IFC over the sacrum to help stimulate the pelvic floor
--- NOTE | 2023-02-20 15:05 | PT.OTN ---
Current Diagnoses Stress incontinence (female) (male) (02/20/23) Cystocele, midline (02/20/23) Female genital prolapse, unspecified (02/20/23) Physical Therapy Treatment Note PT-OP-A Visit Information Start: 09/24/22 08:54 Freq: Status: Active Protocol: Document 02/20/23 09:05 [facility] (Rec: 02/20/23 09:48 [facility] [id number]) Out-Patient Physical Therapy Visit Information Visit Information Visit Type Treatment Note Visit Start Time 09:05 Visit Stop Time 09:45 Total Visit Minutes 40 Visit Number 8 PT-OP-B Current Condition Start: 09/24/22 08:54 Freq: Status: Active Protocol: Document 09/24/22 10:30 [facility] (Rec: 09/24/22 11:35 [facility] [id number]) Current Condition History of Current Condition Onset Date 2018 symtoms began following her partial hysterectomy Current Complaints pelvic pressure, urgency and frequency to void History of Current Condition c section 28 years ago. since her surgery of partial hysterectomy and bladder lift 2018 she has felt different, intercourse felt different different, heaviness of her bladder in the am, she has urgency and frequency, she has to bear down to make her urine come out fast. Before her partial hysterectomy she had one surgery to remove cysts on her ovaries, she did a hysterectomy due to cysts and uterine prolapse she also had urgency. Pt has MS and she works on natural ways to manage her symptoms. She has had right sided tightness, her ITB is tight on the right side. She had a injection in L5 in may 2021 and she did have relief pt takes dandilion root for bowl movements. MS diagnosis january 2015 PT-OP-C Subjective Start: 09/24/22 08:54 Freq: Status: Active Protocol: Document 02/20/23 09:05 [facility] (Rec: 02/20/23 09:48 [facility] [id number]) OP-PT Subjective Patient Comments Patient Comments Joey notes her back feels better this week and she can tell her pelvic floor is easier to recruit. She is not feeling the pelvic pressure PT-OP-I Pelvic Floor Start: 09/24/22 08:54 Freq: Status: Active Protocol: Document 01/30/23 11:57 [facility] (Rec: 01/30/23 11:57 [facility] [id number]) Pelvic Floor Assessment Contraction Ability Manual Muscle Testing Left 2 Manual Muscle Testing Right 2 Manual Muscle Testing Anterior 1 Manual Muscle Testing Posterior 1 Muscle Endurance (Seconds) 5 PT-OP-J Posture/Palpation/Skin Start: 09/24/22 08:54 Freq: Status: Active Protocol: Document 09/24/22 10:30 [facility] (Rec: 09/26/22 17:26 [facility] [id number]) Palpation Assessment Location scar Palpation Details tenderness to palpation over the scar, myofascial restrictions noted in the region of the suprapubic fascia and Joey notes she does not like any pressure over her lower abdominal wall. PT-OP-Q Treatments Start: 09/24/22 08:54 Freq: Status: Active Protocol: Document 02/20/23 09:05 [facility] (Rec: 02/20/23 09:48 [facility] [id number]) Therapeutic Exercises Supine Exercises tempates for coordination and eccentric control Reps/Minutes x 8 min quick pelvic floor contractions Reps/Minutes x 10 reps pelvic floor long holds Reps/Minutes 7.2 max of 11.2 pelvic floor contractions with ball squeeze Reps/Minutes 5 sec hold x 10 sec relax x 10 reps PT-OP-R Modalities Start: 02/20/23 14:58 Freq: Status: Active Protocol: Document 02/20/23 14:59 [facility] (Rec: 02/20/23 15:00 [facility] [id number]) Electric Stimulation Electric Stimulation Pre-Modulated Body Location sacral MEGAN B Duration (Minutes) 10 Intensity 15 Contraction Type Normal Cycle Continuous Patient Position Supine Comments pt tolerated well PT-OP-T Assessment and Plan Start: 09/24/22 08:54 Freq: Status: Active Protocol: Document 02/20/23 15:00 [facility] (Rec: 02/20/23 15:04 [facility] [id number]) Physical Therapy Assessment Goals Three Impairment Decreased pelvic floor endurance with poor ability to sustain a contraction more than 1-2 seconds in supine Short Term Goal (STG) Joey is able to increase her endurance holds to 10 second holds in supine Joey is making good progress but it is still difficult to hold more than 5 seconds STG Duration x 8 weeks [employer] Goal (LTG) Joey is able to sustain a pelvic floor contraction x 10 seconds in standing Goal not yet met LTG Duration x 12 weeks Two Impairment pelvic floor muscle weakness with pelvic organ prolapse and c/o heaviness and pressure Short Term Goal (STG) Joey is educated on pelvic floor facilitation of all aspects of the pelvic floor and is given pelvic decompression exercises to help decrease c/o pelvic heaviness and pressure goal met STG Duration 4 weeks [employer] Goal (LTG) Joey is able to increase the sterngth of her pelvic floor to 3/5 MMT for all hill of the levator ani or better for improved bladder and vaginal wall support as of 01/30/23 the lateral hill test 2/5 MMT now but still 1/ 5 for anterior and posterior pelvic floor LTG Duration 12 weeks One Impairment urinary frequency and urgency to void with pt waking 2 times at night to void and voiding 12+ times during the day Short Term Goal (STG) Joey is educated in urge deference technique and bladder retraining to begin increasing the time between voids. GOAL MET STG Duration 4 weeks [employer] Goal (LTG) Joey is able to extend the time between voids to every 2- 3 hours during the day and is waking only 1 time at night to void. waking 1 time per night to void GOAL MET LTG Duration 12 weeks Assessment Summary Assessment Trial of e-stim on either side of the sacrum today to see if facilitation here would help pelvic floor contractions. It does seem Joey's sacral nerves are involved as when she is out of the back pain she feels stronger in her pelvic floor. She is Ind with her HEP at this time and will continue working on her exercises as well as massage therapy and chiropractic work for her sacrum and low back Physical Therapy Plan Discharge Physical Therapy Discharge Reasons Plateau in Progress Discharge Comments pt is IND with a HEP and will continue working on her own
== END 2023-03-24 14:05 | disposition home or self-care (01) ==
LOC: PHYS 09:00
PROVIDERS: Family Provider Family Medicine; PCP Family Medicine; Referring Provider Obstetrics & Gynecology; Visit Provider Obstetrics & Gynecology
DX: N81.9 Female genital prolapse, unspecified (principal); N81.11 Cystocele, midline; N39.3 Stress incontinence (female) (male)
CPT/HCPCS: 97014; 97110; 97112; 97140; 97161; 97535; G0283

== ENCOUNTER → 2024-04-11 15:11 | Outpatient (CLI) | payer OTHER, SELFPAY ==
[2024-03-16 09:41] VITALS: BMI 24.3
--- NOTE | 2024-04-11 15:15 | DI.MRI.S_ITS ---
PROCEDURE: MR HEAD/BRAIN WO/W CON INDICATIONS: multiple sclerosis TECHNIQUE: Noncontrast sagittal and axial FLAIR, axial and coronal T2 fast spin echo, axial VIBE, axial gradient echo, axial diffusion and ADC through the brain. After the administration of contrast, axial and coronal and sagittal VIBE with fat saturation through the brain. COMPARISON: [facility], , MR HEAD/BRAIN WO/W CON, 05/24/2021, 18:10. FINDINGS: Image quality: Excellent. CSF spaces: Ventricles are normal in size and shape. Basal cisterns are patent. No extra-axial fluid collections. Brain: Redemonstration of multiple hyperintense foci within the periventricular and subcortical white matter. Few cerebellar lesions are redemonstrated. New lesion within the right frontal lobe measuring approximately 6 mm (8/16, 6/10). Additional new lesion within the right temporal lobe anteriorly measuring 7 mm (6/6). There is no associated enhancement. There is associated T1 hypointense signal. No intracranial bleeds or mass effects. Lara-white matter interface appears intact. No suspicious white matter lesions. No abnormal intracranial enhancement. Diffusion weighted images show no acute ischemic insults. Brainstem appears normal. Normal intravascular flow voids are present. Skull and face: Calvarial marrow signal is normal. Orbits appear normal. Sinuses: Mild diffuse paranasal sinus mucosal thickening. The mastoid air cells are clear. IMPRESSION: Redemonstration of T2/FLAIR hyperintense lesions within the periventricular and subcortical white matter. New lesions within the right frontal lobe measuring 6 mm and right anterior temporal lobe measuring 7 mm. There is no associated enhancement. Dictated by: Mc Diaz M.D. on 04/12/2024 at 10:27 Approved by: Mc Diaz M.D. on 04/12/2024 at 10:34
--- NOTE | 2024-04-11 15:15 | DI.MRI.S_ITS ---
PROCEDURE: MR LUMBAR SPINE WO/W CON INDICATIONS: MS with lumbar symptoms TECHNIQUE: Noncontrast sagittal T1 spin echo and T2 fast spin echo, sagittal STIR, axial T1 and T2 fast spin echo through the lumbar spine. In cases with scoliosis, additional coronal T2 fast spin echo may be performed. After the administration of contrast, sagittal and axial T1 spin echo with fat saturation through the lumbar spine. COMPARISON: [facility], MR, MR LUMBAR SPINE WO/W CON, 05/24/2021, 18:10. FINDINGS: Image quality: Excellent. Alignment and curvature: Mild dextrocurvature of the lumbar spine. Marrow: Marrow is of normal overall signal. No acute vertebral body compression fractures. No suspicious marrow enhancement. Spinal cord: Conus medullaris terminates at the L1 level. Visualized spinal cord demonstrates normal signal, without suspicious enhancement. Paraspinous soft tissues: No paravertebral masses or abnormal enhancement. Simple appearing exophytic cyst at the inferior pole the left kidney. T12-L1: Normal appearance. L1-L2: Normal appearance. L2-L3: Mild disc desiccation. Small right foraminal disc protrusion. No central canal or neural foraminal stenosis. L3-L4: Disc desiccation and mild diffuse disc bulge with superimposed right foraminal disc protrusion. Narrowing of the right lateral recess. No significant central canal stenosis. Mild right neural foraminal stenosis. No left neural foraminal stenosis L4-L5: Disc desiccation height loss. Diffuse disc bulge. Facet arthropathy. No central canal stenosis. Stable moderate right neural foraminal stenosis. No left neural foraminal stenosis. L5-S1: Disc desiccation and moderate disc height loss. Facet arthropathy. Mild diffuse disc bulge. No central canal stenosis. Mild right and no left neural foraminal stenosis. IMPRESSION: Mild degenerative changes of the lumbar spine are similar appearance compared to prior exam, as described above. No abnormal enhancement. Dictated by: Mc Diaz M.D. on 04/12/2024 at 10:34 Approved by: Mc Diaz M.D. on 04/12/2024 at 10:39
== END ==
LOC: MRI 15:12
PROVIDERS: Family Provider Family Medicine; PCP Family Medicine; Referring Provider Family Medicine; Visit Provider Family Medicine
DX: G35 Multiple sclerosis (principal); M47.816 Spondylosis without myelopathy or radiculopathy, lumbar region; M47.817 Spondylosis without myelopathy or radiculopathy, lumbosacral region; M54.50 Low back pain, unspecified; G89.29 Other chronic pain
CPT/HCPCS: 70553; 72158; A9579

== ENCOUNTER → 2024-04-20 11:55 | Outpatient (CLI) | payer OTHER, SELFPAY ==
[2024-03-16 09:41] VITALS: BMI 24.3
[2024-04-20 13:08] LABS: Add Manual Diff / Slide Review NO; Basophils Absolute Auto 0 /uL (0-100); Basophils Percent Auto 0.5 % (0-2); Eosinophils Absolute Auto 100 /uL (0-450); Eosinophils Percent Auto 1.2 % (2-4); Hematocrit 39.5 % (36-46); Hemoglobin 13.6 g/dL (12.0-16.0); Lymphocytes Absolute Auto 2200 /uL (1100-4500); Lymphocytes Percent Auto 31.4 % (25-40); Mean Corpuscular HGB Conc 34.3 % (30-36); Mean Corpuscular Hemoglobin 30.7 PG (26-34); Mean Corpuscular Volume 89.4 fL (80-100); Monocytes Absolute Auto 400 /uL (0-900); Monocytes Percent Auto 5.9 % (3-14); Neutrophils Absolute Auto 4300 /uL (1500-7000); Platelet Count 305 X10^3/uL (150-400); Red Blood Cell Count 4.42 X10^6/uL (4.0-5.2); Red Cell Distribution Width 12.7 % (11.6-14.8)
[2024-04-20 13:50] LABS: Alanine Aminotransferase 13 IU/L (<35); Albumin 4.2 g/dL (3.5-5.0); Albumin Globulin Ratio 1.8 (1.0-2.8); Alkaline Phosphatase 50 U/L (38-126); Aspartate Aminotransferase 20 IU/L (14-36); BUN Creatinine Ratio 20.5 (6-22); Bilirubin Total 0.4 mg/dL (0.2-1.3); Blood Urea Nitrogen 15 mg/dL (7-17); Calcium 9.2 mg/dL (8.4-10.2); Carbon Dioxide 27 mmol/L (22-32); Chloride 105 mmol/L (98-107); Cholesterol 174 mg/dL (140-199); Estimated Glomerular Filt Rate > 60 mL/min (>60); Globulin 2.3 g/dL (1.7-4.1); Glucose 95 mg/dL (70-100); HDL Cholesterol 66 mg/dL (40-60); HEMOLYSIS < 15 (0-50); LDL Cholesterol Calculated 74 mg/dL (<100); Potassium 4.2 mmol/L (3.4-5.1); Sodium 136 mmol/L (137-145); Total Protein 6.5 g/dL (6.3-8.2); Triglycerides 171 mg/dL (35-150)
[2024-04-20 14:21] LABS: TSH w/ Reflex to FT4 0.63 uIU/mL (0.47-4.68)
[2024-04-20 14:40] LABS: Vitamin B12 339 pg/mL (239-931)
[2024-04-21 03:36] LABS: Apolipoprotein B 75 mg/dL (<90)
[2024-04-22 09:36] LABS: Fecal Immunochemical Test Negative (Negative)
== END ==
PROVIDERS: Family Provider Family Medicine; PCP Family Medicine; Referring Provider Family Medicine; Visit Provider Family Medicine
DX: G35 Multiple sclerosis (principal); F43.22 Adjustment disorder with anxiety; F98.8 Other specified behavioral and emotional disorders with onset usually occurring in childhood and adolescence; N81.9 Female genital prolapse, unspecified; H00.019 Hordeolum externum unspecified eye, unspecified eyelid; M54.50 Low back pain, unspecified; G89.29 Other chronic pain; Z12.11 Encounter for screening for malignant neoplasm of colon
CPT/HCPCS: 36415; 80053; 80061; 82172; 82274; 82306; 82607; 84443; 85025; 86900; 86901

== ENCOUNTER → 2025-01-29 09:41 | Outpatient (CLI) | payer BC, SELFPAY ==
[2024-03-16 09:41] VITALS: BMI 24.3
== END ==
PROVIDERS: PCP Family Medicine; Visit Provider Chiropractor
DX: R30.0 Dysuria (principal)
CPT/HCPCS: 87086; 87210